=== PATIENT | female | born 1935 | race Caucasian/White ===

== ENCOUNTER → 2016-07-31 | Outpatient (REF) | payer MEDICARE ==
[~2016-07-31] MED LIST: AMLO10TA2 PO; AMLO25TA PO; ARIC10TA PO; BACT800T5 PO; CALCTAB22 PO; CALTCHW4 PO; CALTTAB10 PO; CENTCHW3 PO; CENTTAB PO; COLA100C2 OR; COMP1TAB PO; DECADRON PO; DEXA4TA PO; DONETAB6 PO; DRIS50002 PO; DYAZ37.5 PO; Drisdol PO; FAMC250T3 PO; FURO40TA2 PO; HYDR-3713 PO; LASI40TA PO; LEVO25TABR PO; LEVO75TA4 PO; LISI5TAB PO; LOPR1TAB6 PO; MELA5CHW PO; MILKSUS OR; MILKSUS PO; MIRA3350 PO; MULTIVIT PO; NAME5TAB13 PO; NORCOTAB PO; NORV5TAB OR; OMEP20CA3 PO; PRAV40TA PO; PROC5TA PO; SENO8.6T2 PO; SIMV40TA2 PO; TYLE325T5 PO; ULTR50TA PO; VELC3.5I IM; compazine PO
[2016-07-31 18:40] LABS: TOTAL PROTEIN 6.9 GM/DL (6.4-8.2)
[2016-08-01 13:59] LABS: ALBUMIN % 50.7 % (55.8-66.1)
[2016-08-04 00:06] LABS: FREE KAPPA LIGHT CHAINS SERUM 420.9 mg/L (3.3-19.4); FREE LAMBDA LIGHT CHAINS SERUM 14.9 mg/L (5.7-26.3); KAPPA/LAMBDA RATIO SERUM 28.25 (0.26-1.65)
== END ==
LOC: M LAB REF 17:59
PROVIDERS: ATTEND Internal Medicine Medical Oncology
DX: C90.00 Multiple myeloma not having achieved remission (principal)

== ENCOUNTER → 2016-08-01 | Outpatient (REF) | payer MEDICARE ==
[2016-08-01 17:40] LABS: FOLATE 12.7 NG/ML (>5.4)
[2016-08-01 17:52] LABS: ALBUMIN 3.4 GM/DL (3.2-5.2); ALBUMIN/GLOBULIN RATIO 0.92 (1.00-1.93); BILIRUBIN,TOTAL 0.4 MG/DL (0.2-1.0); CALCIUM LEVEL 8.3 MG/DL (8.8-10.2); CREATININE FOR GFR 1.26 MG/DL (0.55-1.02); GLOMERULAR FILTRATION RATE 43.2 (>32); POTASSIUM SERUM 4.6 MEQ/L (3.5-5.1); TOTAL PROTEIN 7.1 GM/DL (6.4-8.2)
[2016-08-01 19:07] LABS: MEAN CORPUSCULAR HEMOGLOBIN 30.5 pg (27.0-33.0); MEAN CORPUSCULAR VOLUME 95.3 fl (80.0-96.0); RED CELL DISTRIBUTION WIDTH 16.6 % (11.5-14.5); RETIC HEMOGLOBIN CONTENT CHr 33.7 PG (24-36); RETICULOCYTE % ADVIA2120 2.1 % (0.5-1.5); WHITE BLOOD COUNT 7.6 K/mm3 (4.0-10.0)
== END ==
LOC: M SFHCCLAY 11:08
PROVIDERS: ATTEND Nurse Practitioner Family
DX: K21.9 Gastro-esophageal reflux disease without esophagitis (principal); I10 Essential (primary) hypertension; E78.5 Hyperlipidemia, unspecified; E03.9 Hypothyroidism, unspecified; R41.3 Other amnesia; N39.0 Urinary tract infection, site not specified; Z79.899 Other long term (current) drug therapy; I48.91 Unspecified atrial fibrillation

== ENCOUNTER 2016-08-12 17:04 | Inpatient (IN) | payer MEDICARE ==
[~2016-08-12] VITALS: Ht 152.4 cm; Wt 38.2 kg
[~2016-08-12 17:04] MED LIST changes: -ARIC10TA PO; +ARIC1TAB2 PO; -CALTCHW4 PO; -CENTTAB PO; -FURO40TA2 PO; -HYDR-3713 PO; -MELA5CHW PO; -PROC5TA PO; -SENO8.6T2 PO; +SENO8.6T5 PO; -ULTR50TA PO; +ULTR50TA8 PO; -VELC3.5I IM
[2016-08-12] MEDS ORDERED: VELC3.5I IM (17:25)
[2016-08-12] MEDS ORDERED: DEXA4TA PO (17:25)
[2016-08-12] MEDS ORDERED: CENTTAB PO (17:25)
[2016-08-12] MEDS ORDERED: FURO40TA2 PO (17:25)
[2016-08-12] MEDS ORDERED: CALTCHW4 PO (17:25)
[2016-08-12] MEDS ORDERED: HYDR-3713 PO (17:25)
[2016-08-12] MEDS ORDERED: MELA5TAB20 PO (17:25)
[2016-08-12] MEDS ORDERED: PROC5TA PO (17:25)
[2016-08-12 18:25] LABS: ADD MANUAL DIFFER YES; MEAN CORPUSCULAR HEMOGLOBIN 30.6 pg (27.0-33.0); MEAN CORPUSCULAR HGB CONC 31.8 g/dl (32.0-36.5); MEAN CORPUSCULAR VOLUME 96.2 fl (80.0-96.0); PLATELET COUNT, AUTOMATED 381 k/mm3 (150-450); RED CELL DISTRIBUTION WIDTH 16.8 % (11.5-14.5); WHITE BLOOD COUNT 2.7 K/mm3 (4.0-10.0)
[2016-08-12 18:30] LABS: INR 1.07
[2016-08-12 18:51] LABS: ALBUMIN 3.1 GM/DL (3.2-5.2); ALBUMIN/GLOBULIN RATIO 0.86 (1.00-1.93); ALKALINE PHOSPHATASE 120 U/L (45-117); ALT/SGPT 16 U/L (12-78); AMYLASE 95 U/L (25-115); ANION GAP 7 MEQ/L (8-16); AST/SGOT 14 U/L (15-37); BILIRUBIN,DIRECT < 0.1 MG/DL (0.0-0.2); BILIRUBIN,TOTAL 0.4 MG/DL (0.2-1.0); BLOOD UREA NITROGEN 19 MG/DL (7-18); CALCIUM LEVEL 8.4 MG/DL (8.8-10.2); CARBON DIOXIDE LEVEL 31 MEQ/L (21-32); CHLORIDE LEVEL 102 MEQ/L (98-107); CREATININE FOR GFR 1.23 MG/DL (0.55-1.02); GLOMERULAR FILTRATION RATE 44.4 (>32); GLUCOSE, FASTING 99 MG/DL (83-110); POTASSIUM SERUM 3.6 MEQ/L (3.5-5.1); SODIUM LEVEL 140 MEQ/L (136-145); TOTAL PROTEIN 6.7 GM/DL (6.4-8.2)
[2016-08-12 18:53] LABS: BASOPHILS 4 % (0-4); EOSINOPHILS 2 % (0-5)
[2016-08-12 18:55] LABS: ANISOCYTOSIS 1+; HYPOCHROMASIA 1+
[2016-08-12] MEDS ORDERED: ISOVUE-370 76% 100ML VIAL (Q9967) As Ordered ONE (19:02)
--- NOTE | 2016-08-12 19:31 | REP ---
Clinical: Right lower quadrant pain. Technique: Axial contrast enhanced images from the lung bases to the pubic symphysis using oral and 100 ml Isovue 370 intravenous contrast material with coronal and sagittal re-formations. Findings: A [id number] pericardial effusion is appreciated. Lung bases are clear. Liver, spleen, gallbladder, and bilateral adrenal glands are normal. The pancreas demonstrates few scattered small cysts up to 9 mm which are nonspecific. Kidneys demonstrate cortical atrophic changes and few scattered small cysts without perinephric stranding or hydroureteronephrosis. The enteric system is without obstruction or acute inflammatory process. Diverticulosis noted without acute diverticulitis. Pelvis demonstrates partially collapsed bladder and age-appropriate uterus/adnexa with degenerating, partially calcified myomatous changes. Abdominal aorta and branch vessels demonstrate atherosclerotic changes without aneurysm or dissection. Musculoskeletal structures demonstrate age-related degenerative changes as well as evidence for old injuries to the pelvis and hips. No ascites. No free air. No adenopathy. Impression: 1. Moderate to large pericardial effusion. Lung bases are clear. 2. Subcentimeter pancreatic cysts are nonspecific and likely benign. 3. Atrophic changes to the bilateral kidneys with small sub centimeter cysts. 4. Diverticulosis without acute diverticulitis. 5. Small involuting partially calcified uterine fibroids. 6. Atherosclerotic changes to the vasculature as well as degenerative and post traumatic changes to the musculoskeletal structures. 7. No obvious acute abdominopelvic pathology otherwise appreciated. Signed by Ryan Matos MD 08/12/2016 07:22 P
[2016-08-13] VITALS (7 sets, daily range): BP systolic 138–180; BP diastolic 72–110; PULSE 114
[2016-08-13] MEDS ORDERED: ACETAMINOPHEN TAB 650MG DOSE (2X325MG) PO PRN
[2016-08-13] MEDS ORDERED: SLF 3 ML SYR IV PRN (04:30)
--- NOTE | 2016-08-13 04:57 | HPEPDOC ---
General Date of Admission Aug 12, 2016 at 18:03 Primary Care Physician: Yina Mcgrath Attending Physician: Yina Mcgrath Chief Complaint The patient is a 81-year-old female admitted with a reason for visit of Abdominal Pain,Pericardial Effusion. Source: RN notes reviewed, [facility] records, [facility] Caregiver/Aid Exam Limitations: Clinical conditions, Dementia, Mild cognitive slowing Timing/Duration: Unsure Severity: Moderate Associated Symptoms: Unobtainable History of Present Illness 81-year-old demented female is brought in by a caregiver for the complaint of abdominal pain. As per caregiver. There is no complaint of diarrhea, constipation. Patient progressively getting weak. No fever or chills. No history of kidney stone. No hematuria or dysuria. Patient's is unable to participate in history and physical exam Home Medications Scheduled (Caltrate 600+D 600-400 mg-Unit) 1 Chw Chw, 1 CHW PO DAILY, (Reported) Amlodipine Besylate (Norvasc) 2.5 Mg Tab, 5 MG PO DAILY, (Reported) Bortezomib (Velcade) 3.5 Mg Inj, 3.5 MG IM ASDIRECTED, (Reported) Dexamethasone (Dexamethasone) 4 Mg Tab, 5 MG PO DAILY, (Reported) Donepezil Hydrochloride (Aricept) 10 Mg Tab, 10 MG PO QHS, (Reported) Furosemide (Furosemide) 40 Mg Tab, 40 MG PO DAILY, (Reported) Levothyroxine Sodium (Synthroid) 75 Mcg Tab, 75 MCG PO DAILY, (Reported) Memantine (Namenda) 5 Mg Tab, 5 MG PO DAILY, (Reported) Multivitamins (Centrum Silver) 1 Tab Tab, 1 TAB PO DAILY, (Reported) Omeprazole (Omeprazole) 20 Mg Cap, 40 MG PO DAILY, (Reported) Pravastatin Sodium (Pravachol) 40 Mg Tab, 40 MG PO DAILY, (Reported) Scheduled PRN (Melatonin) 5 Mg Chw, 10 MG PO PRN PRN for INSOMNIA, (Reported) Acetaminophen (Tylenol) 325 Mg Tab, 650 MG PO Q4HP PRN for MILD PAIN OR FEVER, ( Reported) Acetaminophen/Hydrocodone (Hydrocodone/Acetaminophen 5-325 mg) 1 Tab Tab, 1 TAB PO Q6H PRN for PAIN, (Reported) Prochlorperazine (Prochlorperazine Maleate) 5 Mg Tab, 10 MG PO QIDP PRN for NAUSEA, (Reported) Allergies Coded Allergies: Aspirin (Verified Allergy, Unknown, 05/24/12) Lactose Intolerance (GI) (Verified Allergy, Unknown, 08/12/16) Past Medical History Medical History Dementia, hypertensive pancytopenia kidney injury Surgical History Unable to obtain Family History Significant Family History: Unable to assess Social History * Smoker: Denies Alcohol: Denies Drugs: denies Recent Travel/Sick Contacts: Denies: Recent travel, Recent sick contacts Psychosocial History: Dementia Review of Symptoms Other systems Unable to assess due to severe dementia Physical Examination General Exam: Positive: Alert, Mild Distress Eye Exam: Positive: PERRLA, Conjunctiva & lids normal, EOMI, Negative: Sclera icteric ENT Exam: Positive: Atraumatic, Mucous membr. moist/pink Neck Exam: Positive: Supple, Negative: JVD, thyromegaly Chest Exam: Positive: Rhonchi, Diminished Heart Exam: Positive: Rate Normal, Regular Rhythm, Normal S1, Normal S2, Negative: Murmurs, Rubs Telemetry: Positive: No significant arrhythmia Abdomen Exam: Positive: Normal bowel sounds, Soft, Tenderness, Negative: Hepatospenomegaly Extremity Exam: Positive: Normal pulses, Negative: Clubbing, Cyanosis, Edema Skin Exam: Positive: Nl turgor and temperature, Negative: Breakdown, Lesion Neuro Exam: Positive: Cranial Nerves 3-12 NL, Reflexes 2+ Psych Exam: Positive: Mood NL, Other (demented, not aware of her medical illness) Vital Signs Vital Signs Date Time Temp Pulse Resp B/P (MAP) Pulse Ox O2 Delivery O2 Flow Rate FiO2 08/13/16 03:49 98.9 20 08/13/16 03:40 112 08/13/16 03:25 93 08/12/16 17:04 Room Air Laboratory Data Labs 24H Laboratory Tests 2 08/12/16 18:06: Neutrophils 21L, Lymphocytes (Manual) 43, Monocytes (Manual) 30H, Eosinophils ( Manual) 2, Basophils (Manual) 4, Platelet Estimate NORMAL, Hypochromasia 1+, Anisocytosis 1+, Prothrombin Time 14.0, Prothromb Time International Ratio 1.07 , Activated Partial Thromboplast Time 28.1, Anion Gap 7L, Glomerular Filtration Rate 44.4, Lactic Acid Level 1.6, Calcium Level 8.4L, Aspartate Amino Transf ( AST/SGOT) 14L, Alanine Aminotransferase (ALT/SGPT) 16, Alkaline Phosphatase 120H , Total Bilirubin 0.4, Direct Bilirubin < 0.1, Total Creatine Kinase 44, Creatine Kinase MB 1.5, Creatine Kinase MB Relative Index 3.40, Troponin I < 0.02, Total Protein 6.7, Albumin 3.1L, Albumin/Globulin Ratio 0.86L, Amylase Level 95, Lipase 320 08/12/16 18:22: Urine Appearance HAZY, Urine Color YELLOW, Urine pH 6.0, Urine Specific [place] 1.014, Urine Protein 3+H, Urine Glucose (UA) NEGATIVE, Urine Ketones TRACEH, Urine Urobilinogen 0.2, Urine Bilirubin NEGATIVE, Urine Leukocyte Esterase 2+H, Urine Blood NEGATIVE, Urine Nitrite NEGATIVE, Urine WBC (Auto) 81H, Urine RBC ( Auto) 3, Urine Hyaline Casts (Auto) 0, Urine Bacteria (Auto) 2+H, Urine Squamous Epithelial Cells 1, Urine Mucus (Auto) SMALL, Urine Sperm (Auto) CBC/BMP Laboratory Tests 08/12/16 18:06 Red Blood Count 3.52 L, Mean Corpuscular Volume 96.2 H, Mean Corpuscular Hemoglobin 30.6, Mean Corpuscular Hemoglobin Concent 31.8 L, Red Cell Distribution Width 16.8 H Assessment/Plan 81-year-old demented female was brought in by casing man for pain in the abdomen and a CT of the abdomen showed moderate pericardial effusion Problems (1) Hypertension Status: Acute Problem Text: Continue with Norvasc (2) Multiple myeloma Status: Acute Problem Text: Pancytopenia. The WBC 2.7, hemoglobin 10.8 and platelets 38 hold any anticoagulation (3) Hypothyroid Status: Acute Problem Text: Continue with Synthroid (4) Pericardial effusion Status: Acute Problem Text: CT of the abdomen showed moderate pericardial effusion. Get echocardiogram and cardiology consult by day team hospitalist is started IV Lasix (5) Abdominal pain, right lateral Status: Acute Problem Text: Lipase is normal. LFT normal CT of the abdomen showed = Moderate to large pericardial effusion. Lung bases are clear. Subcentimeter pancreatic cysts are nonspecific and likely benign. Atrophic changes to the bilateral kidneys with small sub centimeter cysts. Diverticulosis without acute diverticulitis. Continue with pain control and IV normal saline (6) UTI (urinary tract infection) Problem Text: As started IV ceftriaxone. Follow. Urine culture (7) HEATHER (acute kidney injury) Problem Text: Creatinine 1.23, likely due to diuretics. Continue to monitor Plan / VTE VTE Prophylaxis Ordered?: Yes Plan Activity: Continue Current, Encourage Ambulation Diagnostics: TTE Anticipated Discharge: [facility] DENNIS GALEANO MD Aug 13, 2016 04:57
[2016-08-13] MEDS: LEVOTHYROXINE 75MCG TABLET (0.075MG) PO SCH (06:06)
[2016-08-13] MEDS: SLF 3 ML SYR IV SCH ×3 (06:06→20:09)
[2016-08-13] MEDS: cefTRIAXone SOD 1 GM in D5W MINI-BAG PLUS 50 ML IV SCH (06:06)
[2016-08-13 06:13] LABS: MEAN CORPUSCULAR HEMOGLOBIN 30.3 pg (27.0-33.0); MEAN CORPUSCULAR HGB CONC 32.1 g/dl (32.0-36.5); MEAN CORPUSCULAR VOLUME 94.5 fl (80.0-96.0); RED CELL DISTRIBUTION WIDTH 17.1 % (11.5-14.5); WHITE BLOOD COUNT 1.8 K/mm3 (4.0-10.0)
[2016-08-13 06:22] LABS: ALBUMIN/GLOBULIN RATIO 0.83 (1.00-1.93); BILIRUBIN,TOTAL 0.3 MG/DL (0.2-1.0); CALCIUM LEVEL 8.4 MG/DL (8.8-10.2); CREATININE FOR GFR 0.97 MG/DL (0.55-1.02); GLOMERULAR FILTRATION RATE 58.4 (>32); POTASSIUM SERUM 3.3 MEQ/L (3.5-5.1); TOTAL PROTEIN 6.6 GM/DL (6.4-8.2)
--- NOTE | 2016-08-13 08:43 | IPNPDOC ---
Subjective Date Seen The patient was seen on 08/13/16. Subjective Chief Complaint/HPI The patient is a 81-year-old female admitted with a reason for visit of Abdominal Pain,Pericardial Effusion. Events since last encounter Pt this morning without new concerns. She state that her abd feels full, but is not painful. General: Denies: Fatigue Constitutional: Denies: Chills, Fever ENT: Denies: Head Aches Pulmonary: Denies: Dyspnea, Cough Cardiovascular: Reports: Palpitations (comes and goes, ongoing for sometime.), Denies: Chest Pain Gastrointestinal: Denies: Nausea, Vomiting, Abdominal Pain (c/o fullness), Diarrhea, Constipation Neurological: Denies: Weakness Psych: Reports: Mood Normal Objective Physical Examination General Exam: Positive: Alert, Cooperative, No Acute Distress ENT Exam: Positive: Atraumatic, Mucous membr. moist/pink Neck Exam: Positive: Supple Chest Exam: Positive: Diminished, Negative: Rales, Rhonchi, Wheezing Heart Exam: Positive: Rate Normal, Regular Rhythm, Normal S1, Normal S2, Negative: Murmurs, Rubs Telemetry: Positive: No significant arrhythmia Abdomen Exam: Positive: Normal bowel sounds, Soft, Tenderness, Negative: Hepatospenomegaly Extremity Exam: Positive: Normal pulses, Negative: Clubbing, Cyanosis, Edema Skin Exam: Positive: Nl turgor and temperature, Negative: Breakdown, Lesion Neuro Exam: Positive: Normal Speech Psych Exam: Positive: Mood NL, Other (demented, not aware of her medical illness) Assessment /Plan Problems (1) Multiple myeloma Status: Chronic Problem Text: Pancytopenia. 08/13 WBC 1.8, hgb 101.1, plt 344K 07/2016 RUBEN IgG kappa c K/L ratio 421/28, check SPEP and bone survey follows c [facility]-prior c [facility] Oncology-was on bortezomib up to 05/2016 per caregiver (she is bring ing records) uses oxycodone 5 q6H prn "MM pain"-uses ~1x daily (2) Pericardial effusion Status: Acute Problem Text: 08/13 CT abd suggests moderate-large pericardial effusion. Echo ordered, Cardio consult placed. Started on Lasix 40 mg IV Q12h on admission. (3) Abdominal pain, right lateral Status: Acute Problem Text: pain mainly epigastrum-? gastritis/PUD (given dexa use)-improves c food 08/13 + PPI to BID/Carafate 08/12 CT abd without acute abdominal findings (4) Hypertension Status: Chronic Problem Text: Continue with Norvasc (5) Hypothyroid Status: Chronic Problem Text: Continue with Synthroid (6) UTI (urinary tract infection) Problem Text: ceftriaxone D2 2 abnormal UA, no culture obtained-attempt to obtain from UA, otherwise recheck (7) Chronic renal insufficiency, stage III (moderate) Status: Chronic Problem Specific Plan: Monitor Clinically Problem Text: baseline scr 1.5 (8) Paroxysmal atrial fibrillation Status: Chronic Response to Treatment: Stable Problem Text: remains rate controlled no anticoag 2 anemia Plan/VTE VTE Prophylaxis Ordered?: No VTE Exclusion Pharmacological: Bleeding Risk Plan Activity: Continue Current, Encourage Ambulation Diagnostics: TTE Anticipated Discharge: Retirement VS, I&O, 24H, Fishbone Vital Signs/I&O Vital Signs Date Time Temp Pulse Resp B/P (MAP) Pulse Ox O2 Delivery O2 Flow Rate FiO2 08/13/16 04:00 99.0 97 20 144/86 (105) 97 Room Air Laboratory Data 24H LABS Laboratory Tests 2 08/12/16 18:06: Neutrophils 21L, Lymphocytes (Manual) 43, Monocytes (Manual) 30H, Eosinophils ( Manual) 2, Basophils (Manual) 4, Platelet Estimate NORMAL, Hypochromasia 1+, Anisocytosis 1+, Prothrombin Time 14.0, Prothromb Time International Ratio 1.07 , Activated Partial Thromboplast Time 28.1, Anion Gap 7L, Glomerular Filtration Rate 44.4, Lactic Acid Level 1.6, Calcium Level 8.4L, Aspartate Amino Transf ( AST/SGOT) 14L, Alanine Aminotransferase (ALT/SGPT) 16, Alkaline Phosphatase 120H , Total Bilirubin 0.4, Direct Bilirubin < 0.1, Total Creatine Kinase 44, Creatine Kinase MB 1.5, Creatine Kinase MB Relative Index 3.40, Troponin I < 0.02, Total Protein 6.7, Albumin 3.1L, Albumin/Globulin Ratio 0.86L, Amylase Level 95, Lipase 320 08/12/16 18:22: Urine Appearance HAZY, Urine Color YELLOW, Urine pH 6.0, Urine Specific [place] 1.014, Urine Protein 3+H, Urine Glucose (UA) NEGATIVE, Urine Ketones TRACEH, Urine Urobilinogen 0.2, Urine Bilirubin NEGATIVE, Urine Leukocyte Esterase 2+H, Urine Blood NEGATIVE, Urine Nitrite NEGATIVE, Urine WBC (Auto) 81H, Urine RBC ( Auto) 3, Urine Hyaline Casts (Auto) 0, Urine Bacteria (Auto) 2+H, Urine Squamous Epithelial Cells 1, Urine Mucus (Auto) SMALL, Urine Sperm (Auto) 08/13/16 05:34: Anion Gap 9, Glomerular Filtration Rate 58.4, Calcium Level 8.4L, Aspartate Amino Transf (AST/SGOT) 17, Alanine Aminotransferase (ALT/SGPT) 16, Alkaline Phosphatase 110, Total Bilirubin 0.3, Total Protein 6.6, Albumin 3.0L, Albumin/ Globulin Ratio 0.83L, Blood Urea Nitrogen 14, Creatinine 0.97, Sodium Level 140 , Potassium Level 3.3L, Chloride Level 102, Carbon Dioxide Level 29 CBC/BMP Laboratory Tests 08/12/16 18:06 Red Blood Count 3.52 L, Mean Corpuscular Volume 96.2 H, Mean Corpuscular Hemoglobin 30.6, Mean Corpuscular Hemoglobin Concent 31.8 L, Red Cell Distribution Width 16.8 H 08/13/16 05:34 Red Blood Count 3.31 L, Mean Corpuscular Volume 94.5, Mean Corpuscular Hemoglobin 30.3, Mean Corpuscular Hemoglobin Concent 32.1, Red Cell Distribution Width 17.1 H, Calcium Level 8.4 L, Aspartate Amino Transf (AST/SGOT ) 17, Alanine Aminotransferase (ALT/SGPT) 16, Alkaline Phosphatase 110, Total Bilirubin 0.3, Total Protein 6.6, Albumin 3.0 L CAMILA ALMANZAR PA-C Aug 13, 2016 08:43 Mika Blackman M.D. Aug 13, 2016 14:37
[2016-08-13] MEDS ORDERED: OMEPRAZOLE 20 MG CAP PO SCH (09:00)
[2016-08-13] MEDS ORDERED: FUROSEMIDE 40 MG TAB PO SCH (09:00)
[2016-08-13] MEDS ORDERED: ENOXAPARIN 40 MG/0.4 ML SYRINGE (J1650) SC SCH (09:00)
[2016-08-13] MEDS: MULTIVITAMINS/MINERALS THERAP 1 TAB PO SCH (09:35)
[2016-08-13] MEDS: MEMANTINE 5MG TABLET (NAMENDA) PO SCH (09:35)
[2016-08-13] MEDS: amLODIPine 5 MG TAB PO SCH (09:35)
[2016-08-13] MEDS: FUROSEMIDE 40 MG/4 ML VIAL (J1940) IV SCH ×2 (09:36→17:26)
[2016-08-13] MEDS ORDERED: POTASSIUM CHLORIDE 10 MEQ SR TABLET PO ONE (13:00)
[2016-08-13] MEDS: ACETAMINOPHEN TAB 650MG DOSE (2X325MG) PO PRN ×2 (14:04→23:23)
--- NOTE | 2016-08-13 16:31 | REP ---
Adult bone survey: 16 views: History: Myeloma. Comparison study: 08/12/2014. This prior study showed no focal lytic lesion. Technique: AP and lateral views of the skull, C-spine, T-spine, lumbar spine are obtained. AP views of the pelvis and each femur and each humerus are also obtained. Findings: There is diffuse osteopenia. Multiple wedge-shaped compression deformities are seen, this has progressed since the prior study of July 2014 when there was some wedging at T10. There is progressive wedging at T10 and there is new wedging at T11 , T9, T8 and T7 as well as at L1-L2 and L3. No focal bony destructive lesion is appreciated. Pedicles and posterior elements appear to be intact. There are some degenerative changes in the cervical thoracic and lumbar spine. Cervical cranial fusion procedure has been for performed posteriorly as before. No bony calvarial defect is seen. There are intramedullary rods and hip fracture pinning bilaterally in the femurs. There is old post-traumatic deformity of the left pelvis. These changes are new when compared with the prior study. There is old post-traumatic deformity in the humeral head on the right. This is unchanged. Impression: No focal lytic lesions seen. Interval bilateral hip pinning and old appearing post traumatic deformity of the left pelvis. 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 Signed by Virgil Perrin MD 08/13/2016 05:54 P
[2016-08-13] MEDS: SUCRALFATE SUSP 1GM/10ML UD PO SCH ×2 (17:26→20:08)
[2016-08-13] MEDS: oxyCODONE 5MG TAB PO PRN (18:31)
[2016-08-13 18:45] LABS: TOTAL PROTEIN 7.5 GM/DL (6.4-8.2)
[2016-08-13] MEDS: PRAVASTATIN 20 MG TAB PO SCH (20:07)
[2016-08-13] MEDS: OMEPRAZOLE 20 MG CAP PO SCH (20:08)
[2016-08-13] MEDS: DONEPEZIL 5 MG TAB PO SCH (20:08)
[2016-08-14] VITALS (7 sets, daily range): BP systolic 124–161; BP diastolic 71–91; PULSE 95–96
[2016-08-14] MEDS: SLF 3 ML SYR IV SCH ×3 (04:41→22:01)
[2016-08-14] MEDS: LEVOTHYROXINE 75MCG TABLET (0.075MG) PO SCH (04:41)
[2016-08-14] MEDS: cefTRIAXone SOD 1 GM in D5W MINI-BAG PLUS 50 ML IV SCH (04:41)
[2016-08-14] MEDS: oxyCODONE 5MG TAB PO PRN ×2 (04:42→15:32)
[2016-08-14] MEDS: PROCHLORPERAZINE 5 MG TAB (S0183) PO PRN (04:57)
[2016-08-14 05:33] LABS: MEAN CORPUSCULAR HEMOGLOBIN 30.2 pg (27.0-33.0); MEAN CORPUSCULAR VOLUME 94.5 fl (80.0-96.0); RED CELL DISTRIBUTION WIDTH 17.1 % (11.5-14.5); WHITE BLOOD COUNT 2.1 K/mm3 (4.0-10.0)
[2016-08-14 05:51] LABS: ALBUMIN 3.1 GM/DL (3.2-5.2); ALBUMIN/GLOBULIN RATIO 0.79 (1.00-1.93); BILIRUBIN,TOTAL 0.3 MG/DL (0.2-1.0); CALCIUM LEVEL 8.7 MG/DL (8.8-10.2); CREATININE FOR GFR 1.1 MG/DL (0.55-1.02); GLOMERULAR FILTRATION RATE 50.5 (>32); POTASSIUM SERUM 3.4 MEQ/L (3.5-5.1)
--- NOTE | 2016-08-14 07:18 | ECGEPIP ---
Stationary ECG Study [facility] - ED Test Date: 2016-08-12 Pat Name: HALEY MOELLER Department: Room: [place] [address] Gender: F Skin Grader: KARLA : 1935 Requested By: Alvin Wells PA-C Order Number: [id number] Reading MD: Lillie Kim Measurements Intervals [place] Rate: 92 P: ND: 0 QRS: 2 QRSD: 77 T: 50 QT: 363 QTc: 450 Interpretive Statements ATRIAL FIBRILLATION ABNORMAL RHYTHM ECG NSTTW ABNORMALITY PRWP 11/06/14 NSR Electronically Signed On 08-14-2016 7:17:56 EDT by Lillie Kim
[2016-08-14] MEDS: OMEPRAZOLE 20 MG CAP PO SCH ×2 (08:27→20:19)
[2016-08-14] MEDS: MULTIVITAMINS/MINERALS THERAP 1 TAB PO SCH (08:27)
[2016-08-14] MEDS: SUCRALFATE SUSP 1GM/10ML UD PO SCH ×4 (08:27→20:17)
[2016-08-14] MEDS: amLODIPine 5 MG TAB PO SCH (08:28)
[2016-08-14] MEDS: FUROSEMIDE 40 MG/4 ML VIAL (J1940) IV SCH (08:28)
[2016-08-14] MEDS: MEMANTINE 5MG TABLET (NAMENDA) PO SCH (08:28)
--- NOTE | 2016-08-14 09:28 | IPNPDOC ---
Subjective Date Seen The patient was seen on 08/14/16. Subjective Chief Complaint/HPI The patient is a 81-year-old female admitted with a reason for visit of Abdominal Pain,Pericardial Effusion. Events since last encounter Pt denies CP, Abd pain, SOB. Constitutional: Denies: Chills, Fever Pulmonary: Denies: Dyspnea Cardiovascular: Denies: Chest Pain Gastrointestinal: Denies: Nausea, Vomiting, Abdominal Pain Objective Physical Examination General Exam: Positive: Alert, Cooperative, No Acute Distress ENT Exam: Positive: Atraumatic, Mucous membr. moist/pink Neck Exam: Positive: Supple Chest Exam: Positive: Diminished, Negative: Rales, Rhonchi, Wheezing Heart Exam: Positive: Rate Normal, Regular Rhythm, Normal S1, Normal S2, Negative: Murmurs, Rubs Telemetry: Positive: No significant arrhythmia Abdomen Exam: Positive: Normal bowel sounds, Soft, Tenderness, Negative: Hepatospenomegaly Extremity Exam: Positive: Normal pulses, Negative: Clubbing, Cyanosis, Edema Skin Exam: Positive: Nl turgor and temperature, Negative: Breakdown, Lesion Neuro Exam: Positive: Normal Speech Psych Exam: Positive: Mood NL, Other (demented, not aware of her medical illness) Assessment /Plan Problems (1) Multiple myeloma Status: Chronic Problem Text: Pancytopenia. 08/14 - WBC 2.1, hgb 10.5, plt 381 Bone Survey: "There is diffuse osteopenia. Multiple wedge-shaped compression deformities are seen, this has progressed since the prior study of July 2014 when there was some wedging at T10. There is progressive wedging at T10 and there is new wedging at T11 , T9, T8 and T7 as well as at L1-L2 and L3. No focal bony destructive lesion is appreciated. Pedicles and posterior elements appear to be intact. There are some degenerative changes in the cervical thoracic and lumbar spine. Cervical cranial fusion procedure has been for performed posteriorly as before. No bony calvarial defect is seen. There are intramedullary rods and hip fracture pinning bilaterally in the femurs. There is old post-traumatic deformity of the left pelvis. These changes are new when compared with the prior study. There is old post-traumatic deformity in the humeral head on the right. This is unchanged. Impression: No focal lytic lesions seen. Interval bilateral hip pinning and old appearing post traumatic deformity of the left pelvis. 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 He is awaiting the Echo. 08/13 CT abd suggests moderate-large pericardial effusion. Echo ordered, Cardio consult placed. Started on Lasix 40 mg IV Q12h on admission. (3) Abdominal pain, right lateral Status: Acute Problem Text: pain mainly epigastrum-? gastritis/PUD (given dexa use)-improves c food 08/13 + PPI to BID/Carafate 08/12 CT abd without acute abdominal findings (4) Hypertension Status: Chronic Problem Text: Continue with Norvasc (5) Hypothyroid Status: Chronic Problem Text: Continue with Synthroid (6) UTI (urinary tract infection) Problem Text: ceftriaxone D2 2 abnormal UA, no culture obtained-attempt to obtain from UA, otherwise recheck (7) Chronic renal insufficiency, stage III (moderate) Status: Chronic Problem Specific Plan: Monitor Clinically Problem Text: baseline scr 1.5 (8) Paroxysmal atrial fibrillation Status: Chronic Response to Treatment: Stable Problem Text: remains rate controlled no anticoag 2 anemia Plan/VTE VTE Prophylaxis Ordered?: No VTE Exclusion Pharmacological: Bleeding Risk Plan Activity: Continue Current, Encourage Ambulation Diagnostics: TTE Anticipated Discharge: Group Home Family Medicine Attending Note: I saw and examined Ms. Muñoz this afternoon; I discussed her care with RAFA Boyd and I agree with his note above. Ms. Muñoz denies abdominal pain to me today and her abdomen is soft and nontender to palpation. Bone survey shows no focal osteolytic lesions. We are awaiting echo to be done and read prior to discharge due to pericardial effusion seen on CT. (KES) VS, I&O, 24H, Fishbone Vital Signs/I&O Vital Signs Date Time Temp Pulse Resp B/P (MAP) Pulse Ox O2 Delivery O2 Flow Rate FiO2 08/14/16 08:34 Room Air 08/14/16 08:28 101 124/71 08/14/16 07:45 97.8 20 99 I&O- Last 24 Hours up to 6 AM 08/14/16 06:00 Intake Total 1450 ml Output Total 875 ml Balance 575 ml Laboratory Data 24H LABS Laboratory Tests 2 08/13/16 15:58: B-Type Natriuretic Peptide 991H, Total Protein (PEP) 7.5 08/14/16 05:04: Anion Gap 8, Glomerular Filtration Rate 50.5, Blood Urea Nitrogen 12, Creatinine 1.10H, Sodium Level 137, Potassium Level 3.4L, Chloride Level 101, Carbon Dioxide Level 28, Calcium Level 8.7L, Aspartate Amino Transf (AST/SGOT) 18, Alanine Aminotransferase (ALT/SGPT) 15, Alkaline Phosphatase 112, Total Bilirubin 0.3, Total Protein 7.0, Albumin 3.1L, Albumin/Globulin Ratio 0.79L CBC/BMP Laboratory Tests 08/14/16 05:04 Red Blood Count 3.46 L, Mean Corpuscular Volume 94.5, Mean Corpuscular Hemoglobin 30.2, Mean Corpuscular Hemoglobin Concent 32.0, Red Cell Distribution Width 17.1 H, Calcium Level 8.7 L, Aspartate Amino Transf (AST/SGOT ) 18, Alanine Aminotransferase (ALT/SGPT) 15, Alkaline Phosphatase 112, Total Bilirubin 0.3, Total Protein 7.0, Albumin 3.1 L Microbiology Microbiology 08/13/16 Urine Culture, Received Pending Jorge L Cuellar Aug 14, 2016 09:28 CLAUDETTE PICHARDO MD Aug 14, 2016 16:06
[2016-08-14] MEDS ORDERED: POTASSIUM CHLORIDE 10 MEQ SR TABLET PO ONE (09:30)
[2016-08-14] MEDS: ACETAMINOPHEN TAB 650MG DOSE (2X325MG) PO PRN ×2 (11:20→22:22)
[2016-08-14 13:17] LABS: CONTROL LINE HPYORI INT CTR LINE PRESENT
[2016-08-14 14:05] LABS: ALBUMIN 3.93 GM/DL (3.29-5.55); ALBUMIN % 52.4 % (55.8-66.1); GAMMA GLOBULIN % 14.5 % (11.1-18.8)
[2016-08-14] MEDS: CALCIUM CARBONATE 500 MG CHEW U/D PO PRN (15:25)
[2016-08-14] MEDS: ENOXAPARIN 40 MG/0.4 ML SYRINGE (J1650) SC SCH (15:27)
[2016-08-14] MEDS: PRAVASTATIN 20 MG TAB PO SCH (20:16)
[2016-08-14] MEDS: DONEPEZIL 5 MG TAB PO SCH (20:17)
[2016-08-15 04:45] VITALS: BP 147/84
[2016-08-15] MEDS: CALCIUM CARBONATE 500 MG CHEW U/D PO PRN (05:13)
[2016-08-15] MEDS: cefTRIAXone SOD 1 GM in D5W MINI-BAG PLUS 50 ML IV SCH (05:14)
[2016-08-15] MEDS: SLF 3 ML SYR IV SCH ×3 (05:15→22:00)
[2016-08-15] MEDS: LEVOTHYROXINE 75MCG TABLET (0.075MG) PO SCH (05:15)
[2016-08-15 08:00] VITALS: BP 170/88
[2016-08-15] MEDS: SUCRALFATE SUSP 1GM/10ML UD PO SCH ×4 (08:31→20:24)
[2016-08-15] MEDS: OMEPRAZOLE 20 MG CAP PO SCH ×2 (08:31→20:24)
[2016-08-15] MEDS: ENOXAPARIN 40 MG/0.4 ML SYRINGE (J1650) SC SCH (08:31)
[2016-08-15] MEDS: FUROSEMIDE 40 MG TAB PO SCH (08:32)
[2016-08-15] MEDS: ACETAMINOPHEN TAB 650MG DOSE (2X325MG) PO PRN ×2 (08:32→16:39)
[2016-08-15] MEDS: amLODIPine 5 MG TAB PO SCH (08:34)
[2016-08-15] MEDS: MULTIVITAMINS/MINERALS THERAP 1 TAB PO SCH (08:35)
[2016-08-15] MEDS: PROCHLORPERAZINE 5 MG TAB (S0183) PO PRN (08:35)
[2016-08-15] MEDS: MEMANTINE 5MG TABLET (NAMENDA) PO SCH (08:35)
--- NOTE | 2016-08-15 09:04 | IPNPDOC ---
Subjective Date Seen The patient was seen on 08/15/16. Subjective Chief Complaint/HPI The patient is a 81-year-old female admitted with a reason for visit of Abdominal Pain,Pericardial Effusion. Events since last encounter Pt this morning is c/o upset stomach, denies nausea. She states this is the same pain that she has had since admission. Nursing without new concerns, although they are hopeful that she can have something more than clear liquids today. General: Reports: Fatigue Constitutional: Denies: Chills, Fever ENT: Denies: Head Aches Pulmonary: Denies: Dyspnea, Cough Cardiovascular: Denies: Chest Pain, Palpitations Gastrointestinal: Reports: Abdominal Pain, Denies: Nausea, Vomiting, Diarrhea Neurological: Reports: Weakness Psych: Reports: Mood Normal Objective Physical Examination General Exam: Positive: Alert, Cooperative, No Acute Distress ENT Exam: Positive: Mucous membr. moist/pink Neck Exam: Positive: Supple Chest Exam: Positive: Diminished, Negative: Rales, Rhonchi, Wheezing Heart Exam: Positive: Rate Normal, Regular Rhythm, Normal S1, Normal S2, Negative: Murmurs, Rubs Telemetry: Positive: No significant arrhythmia Abdomen Exam: Positive: Normal bowel sounds, Soft, Negative: Tenderness, Hepatospenomegaly Extremity Exam: Positive: Normal pulses, Negative: Clubbing, Cyanosis, Edema Skin Exam: Positive: Nl turgor and temperature, Negative: Breakdown, Lesion Neuro Exam: Positive: Normal Speech Psych Exam: Positive: Mood NL, Other (demented, not aware of her medical illness) Assessment /Plan Problems (1) Multiple myeloma Status: Chronic Problem Text: 08/15 - case d/w Dr. Gallagher, patient's [facility] who states correct dose of dexa should be 20 qW for MM maintenance (but could be weaned down if needed)- states her disease does NOT involve the bone and therefore, NO need for high dose narcotic for MM pain-therefore, decreased to [place] 5 q8prn 08/14 - WBC 2.1, hgb 10.5, plt 381 Bone Survey: "There is diffuse osteopenia. Multiple wedge-shaped compression deformities are seen, this has progressed since the prior study of July 2014 when there was some wedging at T10. There is progressive wedging at T10 and there is new wedging at T11 , T9, T8 and T7 as well as at L1-L2 and L3. No focal bony destructive lesion is appreciated. Pedicles and posterior elements appear to be intact. There are some degenerative changes in the cervical thoracic and lumbar spine. Cervical cranial fusion procedure has been for performed posteriorly as before. No bony calvarial defect is seen. There are intramedullary rods and hip fracture pinning bilaterally in the femurs. There is old post-traumatic deformity of the left pelvis. These changes are new when compared with the prior study. There is old post-traumatic deformity in the humeral head on the right. This is unchanged. Impression: No focal lytic lesions seen. Interval bilateral hip pinning and old appearing post traumatic deformity of the left pelvis. Interval development of multiple thoracolumbar osteoporotic wedge compression deformities as described above." 08/13 WBC 1.8, hgb 101.1, plt 344K 07/2016 RUBEN IgG kappa c K/L ratio 421/28, check SPEP and bone survey follows [facility]st Gallagher-prior [facility]-was on bortezomib up to 05/2016 per caregiver (she is bring ing records) uses oxycodone 5 q6H prn "MM pain" (2) Pericardial effusion Status: Acute Problem Text: 08/15 K 3.4; therefore, +20 QD 08/13 CT abd suggests moderate-large pericardial effusion. BNP 991 (no previous in [place]) Echo ordered, Cardio consult placed. Started on Lasix 40 mg IV Q12h on admission. but TTE 08/13/16: Normal global left ventricular systolic function with mild concentric left ventricular hypertrophy. 2. Aortic valve sclerosis without stenosis or aortic regurgitation. 3. Moderate mitral annulus calcification with mitral annulus calcification. Subjectively, the left atrium appeared to be mildly enlarged. 4. Moderate tricuspid regurgitation with probably mild pulmonary hypertension. 5. Small to moderate pericardial effusion noted around the heart, no evidence of cardiac tamponade. 6. There are findings across the fossa ovalis of the atrial septum that may represent a patent foramen ovale/PFO therefore, Lasix decreased to HD 40 QD (3) Abdominal pain, right lateral Status: Acute Problem Text: pain mainly epigastrum-? gastritis/PUD (given dexa use)-improves c food 08/13 + PPI to BID/Carafate 08/12 CT abd without acute abdominal findings (4) Hypertension Status: Chronic Problem Text: Continue with Norvasc (5) Hypothyroid Status: Chronic Problem Text: Continue with Synthroid (6) UTI (urinary tract infection) Problem Text: 08/15 - Completed Rocephin x 3d, Culture obtained after start of treatment neg, will d/c Abx. 08/14 ceftriaxone D2 2 abnormal UA, 08/13/16 UCX NG (7) Chronic renal insufficiency, stage III (moderate) Status: Chronic Problem Specific Plan: Monitor Clinically Problem Text: baseline scr 1.5 (8) Paroxysmal atrial fibrillation Status: Chronic Response to Treatment: Stable Problem Text: remains rate controlled no anticoag 2 anemia Plan/VTE VTE Prophylaxis Ordered?: No VTE Exclusion Pharmacological: Bleeding Risk Plan Activity: Continue Current, Encourage Ambulation Diagnostics: TTE Anticipated Discharge: Assisted Disposition Transfer to floor when ECHO report available. HSE per PT VS, I&O, 24H, Fishbone Vital Signs/I&O Vital Signs Date Time Temp Pulse Resp B/P (MAP) Pulse Ox O2 Delivery O2 Flow Rate FiO2 08/15/16 08:34 116 170/80 08/15/16 08:28 Room Air 08/15/16 04:45 98.8 20 99 I&O- Last 24 Hours up to 6 AM 08/15/16 06:00 Intake Total 1320 ml Output Total 1350 ml Balance -30 ml Laboratory Data Microbiology Microbiology 08/13/16 Urine Culture - Final, Complete CAMILA ALMANZAR PA-C Aug 15, 2016 09:04 Mika Blackman M.D. Aug 15, 2016 16:51
[2016-08-15 12:15] VITALS: BP 148/76
--- NOTE | 2016-08-15 13:51 | ECHO ---
DATE OF PROCEDURE: 08/13/2016 DATE OF : 1935 AGE: 81 PRIMARY PROVIDER: Dr. Hudson Menezes. REFERRING PROVIDER: Dr. Henrik Smith. PRIMARY DECK MATE: Dr. Moss. PATIENT LOCATION: Room 3225. REASON FOR ECHOCARDIOGRAM: Heart failure. 2D MEASUREMENTS: IVS: 1.2 cm LV: 4.1 cm LVPW: 1.2 cm LA: 3.9 cm Aorta: 2.9 cm IVC: 1.6 cm DOPPLER MEASUREMENTS: Peak velocity across the aortic valve: 1.1 m/s Peak velocity across the LVOT: 0.69 m/s Mitral E: 0.90 Maximum tricuspid valve velocity: 2.7 m/s 2D COMMENTS: 1. Normal left ventricular size and systolic function. Left ventricular wall thickness appeared to be increased. The estimated global left ventricular systolic ejection fraction is 60%. 2. Subjectively, the left atrium and right atrium appear to be mildly enlarged. Normal right ventricle. 3. There was a small color flow jet noted at the level of the fossa ovalis that may represent a patent foramen ovale/PFO. 4. Normal aortic root. 5. Small to moderate pericardial effusion noted around the heart, no evidence of cardiac tamponade. 6. Mildly calcified aortic valve with normal leaflet excursion. Mildly calcified mitral annulus with normal anterior mitral valve leaflet motion. Normal tricuspid valve. The pulmonic valve and proximal pulmonary artery branches were not well visualized. 7. The inferior vena cava was normal in size. Central venous pressure is most likely normal. DOPPLER: It detects moderate mitral regurgitation and moderate tricuspid regurgitation. The calculated pulmonary artery systolic pressure varies between 30 to 40 mmHg. Assessment of the left ventricular diastolic function was limited, patient appeared to be in atrial fibrillation during the test but with a controlled ventricular rhythm. IMPRESSION: 1. Normal global left ventricular systolic function with mild concentric left ventricular hypertrophy. 2. Aortic valve sclerosis without stenosis or aortic regurgitation. 3. Moderate mitral regurgitation with mitral annulus calcification. Subjectively, the left atrium appeared to be mildly enlarged. 4. Moderate tricuspid regurgitation with probably mild pulmonary hypertension. 5. Small to moderate pericardial effusion noted around the heart, no evidence of cardiac tamponade. 6. There are findings across the fossa ovalis of the atrial septum that may represent a patent foramen ovale/PFO. MTDD
[2016-08-15 15:30] VITALS: BP 155/76
[2016-08-15] MEDS ORDERED: NORCO, ANEXSIA 5/325MG TABLET (HYDROcodone/ACETAMINOPHEN) PO PRN (17:00)
[2016-08-15 20:00] VITALS: BP 150/88
[2016-08-15] MEDS: PRAVASTATIN 20 MG TAB PO SCH (20:24)
[2016-08-15] MEDS: DONEPEZIL 5 MG TAB PO SCH (20:24)
[2016-08-15] MEDS: oxyCODONE 5MG TAB PO PRN (20:25)
[2016-08-15 23:59] VITALS: BP 115/56
[2016-08-16 04:00] VITALS: BP 139/94
[2016-08-16] MEDS: LEVOTHYROXINE 75MCG TABLET (0.075MG) PO SCH (05:38)
[2016-08-16] MEDS: SLF 3 ML SYR IV SCH (05:38)
[2016-08-16 05:46] LABS: MEAN CORPUSCULAR HEMOGLOBIN 30.5 pg (27.0-33.0); MEAN CORPUSCULAR HGB CONC 32.5 g/dl (32.0-36.5); MEAN CORPUSCULAR VOLUME 93.6 fl (80.0-96.0); RED CELL DISTRIBUTION WIDTH 16.7 % (11.5-14.5); WHITE BLOOD COUNT 2.4 K/mm3 (4.0-10.0)
[2016-08-16 07:23] LABS: ALBUMIN/GLOBULIN RATIO 0.81 (1.00-1.93); BILIRUBIN,TOTAL 0.3 MG/DL (0.2-1.0); CALCIUM LEVEL 8.7 MG/DL (8.8-10.2); CREATININE FOR GFR 1.2 MG/DL (0.55-1.02); GLOMERULAR FILTRATION RATE 45.7 (>32); POTASSIUM SERUM 3.6 MEQ/L (3.5-5.1); TOTAL PROTEIN 6.7 GM/DL (6.4-8.2)
[2016-08-16 08:00] VITALS: BP 169/73
[2016-08-16] MEDS: SUCRALFATE SUSP 1GM/10ML UD PO SCH ×2 (08:14→12:28)
[2016-08-16] MEDS: ENOXAPARIN 40 MG/0.4 ML SYRINGE (J1650) SC SCH (08:14)
[2016-08-16] MEDS: OMEPRAZOLE 20 MG CAP PO SCH (08:15)
[2016-08-16 08:16] VITALS: BP 169/73
[2016-08-16] MEDS: FUROSEMIDE 40 MG TAB PO SCH (08:16)
[2016-08-16] MEDS: MEMANTINE 5MG TABLET (NAMENDA) PO SCH (08:16)
[2016-08-16] MEDS: amLODIPine 5 MG TAB PO SCH (08:16)
[2016-08-16] MEDS: MULTIVITAMINS/MINERALS THERAP 1 TAB PO SCH (08:16)
[2016-08-16] MEDS ORDERED: POTASSIUM CHLORIDE 10 MEQ SR TABLET PO SCH (09:00)
[2016-08-16] MEDS ORDERED: SUCR10SS PO (11:20)
[2016-08-16] MEDS ORDERED: DEXA2TA PO (11:20)
[2016-08-16] MEDS ORDERED: OMEP20CA3 PO (11:20)
--- NOTE | 2016-08-16 11:55 | DSES ---
DATE OF ADMISSION: 08/13/2016 DATE OF DISCHARGE: 08/16/2016 PRIMARY CARE PROVIDER (PCP): SHAKA Figueroa ATTENDING TODAY: Mika Blackman MD HISTORY: This is an 81-year-old female patient who follows with Yina Mcgrath at [facility] in [place]. She has a history of dementia. Is cared for in her home by her family. She had been complaining of abdominal pain without any diarrhea or constipation. She had been progressively becoming more weak. Denied any fevers or chills. Patient provided limited history secondary to her advancing dementia. During her hospitalization, she has remained medically stable. She was admitted to the hospital for right lateral abdominal pain as well as pericardial effusion identified on CT scan. She was also started on IV antibiotics for a urinary tract infection. She underwent CT of the abdomen and pelvis, which was without any acute findings to contribute to her abdominal pain. Amylase and lipase were benign. Her abdominal pain has consistently and steadily improved. She is eating a regular diet and tolerating this well. In regards to her pericardial effusion, she underwent transthoracic echocardiogram on the 08/13/2016, which suggested a small to moderate pericardial effusion, no evidence of cardiac tamponade, normal left ventricular systolic function, mild concentric left ventricular hypertrophy (LVH), aortic valve sclerosis without stenosis or regurgitation, moderate mitral annulus calcification, moderate tricuspid regurgitation, probably mild pulmonary hypertension. Abdominal pain was likely felt to be secondary to gastritis. Her proton pump inhibitor (PPI) was increased to twice a day. Carafate was also added. She is on dexamethasone once weekly secondary to her history of multiple myeloma, which is followed by oncology in [place] as well as here in [place] with Dr. Kerr. Dr. Blackman spoke with Dr. Kerr yesterday, who confirmed her dose of dexamethasone 20 mg every week. Her complete blood count (CBC), although abnormal, remained stable during her hospitalization. This is associated with her chronic multiple myeloma diagnosis. She has been seen by physical therapy, who feel as though she is safe to return to her prior living situation. She will not be discharged on antibiotics as she completed antibiotics for an E. coli urinary tract infection (UTI) during her hospitalization. The culture reveals no growth, although this was obtained after the antibiotics had been started. DISCHARGE DIAGNOSES: Include: 1. Right upper quadrant abdominal pain. 2. Multiple myeloma. 3. Pericardial effusion. 4. Gastritis. 5. Hypertension. 6. Hypothyroidism. 7. Urinary tract infection. 8. Chronic kidney disease stage III. 9. Underweight with body mass index (BMI) of 16.4. DISCHARGE MEDICATIONS: Include: - dexamethasone 20 mg every Friday - omeprazole 40 mg twice daily - sucralfate 1 gram before meals and before bed - Tylenol 650 mg every 4 hours as needed for mild pain or fever - acetaminophen/hydrocodone 5/325 one tablet every 6 hours as needed for pain - amlodipine 5 mg daily - donepezil 10 mg nightly - furosemide 40 mg daily - Levoxyl 75 mcg daily - melatonin 10 mg as needed before bed for insomnia - Namenda 5 mg daily - multivitamin one tablet daily - Pravachol 40 mg daily - prochlorperazine 10 mg four times daily as needed for nausea DISCHARGE PLAN: Will be to followup with Dr. Harris/Yina Mcgrath in 1 week. Activity should be as tolerated. Followup with Dr. Kerr per his office. Diet is soft mechanical. Edited: chu 08/18/2016 1043
== END 2016-08-16 13:50 | disposition home or self-care (01) | DRG 315 ==
LOC: M ED 18:02 → M ED INP 18:03 → OBSVTOIN 08-13 → M PCU 08-13 04:00
PROVIDERS: ADMIT Internal Medicine; ATTEND Family Medicine
DX: I31.3 Pericardial effusion (noninflammatory) (principal); N39.0 Urinary tract infection, site not specified; Z68.1 Body mass index [BMI] 19.9 or less, adult; C90.00 Multiple myeloma not having achieved remission; N17.9 Acute kidney failure, unspecified; R63.6 Underweight; N18.3 Chronic kidney disease, stage 3 (moderate); F03.90 Unspecified dementia, unspecified severity, without behavioral disturbance, psychotic disturbance, mood disturbance, and anxiety; I36.0 Nonrheumatic tricuspid (valve) stenosis; K29.70 Gastritis, unspecified, without bleeding; I12.9 Hypertensive chronic kidney disease with stage 1 through stage 4 chronic kidney disease, or unspecified chronic kidney disease; E03.9 Hypothyroidism, unspecified; Z79.899 Other long term (current) drug therapy; E73.9 Lactose intolerance, unspecified; G47.00 Insomnia, unspecified; Z88.6 Allergy status to analgesic agent; I48.0 Paroxysmal atrial fibrillation

== ENCOUNTER → 2016-09-19 | Outpatient (REF) | payer MEDICARE ==
[~2016-09-19] MED LIST changes: +ACYC200C8 PO; +AMLO5TAB2 PO; +ARIC1TAB PO; +BISAC5TA PO; +CALTCHW4 PO; +CARV25TA PO; +CENTTAB PO; +DEXA2TA PO; +DOCU10ELUD PO; +FURO40TA2 PO; +HYDR-3713 PO; +MELA5TAB20 PO; +METO-346 PO; +OMEP40CA2 PO; +PRAV40TA2 PO; +PROC5TA PO; +SENN18TA PO; +SERT25TA PO; +SUCR10SS PO; +SUCR1SUS PO; +VELC3.5I IM; +VITACHTA PO
[2016-09-22 00:06] LABS: FREE KAPPA LIGHT CHAINS SERUM 306.7 mg/L (3.3-19.4); FREE LAMBDA LIGHT CHAINS SERUM 12.4 mg/L (5.7-26.3); KAPPA/LAMBDA RATIO SERUM 24.73 (0.26-1.65)
== END ==
LOC: M LAB REF 16:18
PROVIDERS: ATTEND Internal Medicine Medical Oncology
DX: C90.00 Multiple myeloma not having achieved remission (principal)

== ENCOUNTER → 2016-10-24 | Outpatient (REF) | payer MEDICARE ==
[2016-10-24 14:48] LABS: IMMUNOGLOBULIN M 27.6 MG/DL (40-230)
[2016-10-27 00:06] LABS: FREE LAMBDA LIGHT CHAINS SERUM 12.9 mg/L (5.7-26.3); KAPPA/LAMBDA RATIO SERUM 25.5 (0.26-1.65)
== END ==
LOC: M LAB REF 10:36
PROVIDERS: ATTEND Internal Medicine Medical Oncology
DX: C90.00 Multiple myeloma not having achieved remission (principal)

== ENCOUNTER 2016-10-25 15:33 | Inpatient (IN) | payer MEDICARE ==
[~2016-10-25] VITALS: Ht 152.4 cm; Wt 40.8 kg
[~2016-10-25 15:33] MED LIST changes: -ACYC200C8 PO; -AMLO5TAB2 PO; -ARIC1TAB PO; -BISAC5TA PO; -CARV25TA PO; -DOCU10ELUD PO; -METO-346 PO; -OMEP40CA2 PO; -PRAV40TA2 PO; -SENN18TA PO; -SERT25TA PO; -SUCR1SUS PO; -VITACHTA PO
[2016-10-25] MEDS ORDERED: SERT25TA PO (15:47)
[2016-10-25] MEDS ORDERED: CARV25TA PO (15:47)
[2016-10-25] MEDS ORDERED: ACYC200C8 PO (15:47)
--- NOTE | 2016-10-25 17:13 | REP ---
Clinical: Left lower quadrant pain. Comparison: 08/12/2016. Findings: A [id number] pericardial effusion is again identified and unchanged along with atherosclerotic changes to the thoracic aorta and coronary arteries. Liver, spleen, pancreas, gallbladder, bilateral adrenal glands and kidneys are relatively normal / stable for noncontrast evaluation. The enteric system is without obstruction or acute inflammatory process colonic and sigmoid diverticulosis noted without acute diverticulitis pelvis demonstrates normal bladder and age related changes to the uterus including degenerating calcified myomatous changes. No ascites. No free air. No obvious adenopathy. Atherosclerotic changes of the aorta noted without aneurysm. Surrounding musculoskeletal structures demonstrate age-related degenerative changes and chronic stable compression deformities most notable at T11. Impression: 1. Stable moderate to large pericardial effusion and atherosclerotic changes to the vasculature. 2. Diverticulosis without evidence for acute diverticulitis. 3. Skeletal structures demonstrate osteopenia and degenerative changes along with compression fracture deformities predominantly at T11 and T9. 4. No further acute abdominopelvic pathology appreciated. No free fluid. No free air. Signed by Ryan Matos MD 10/25/2016 05:05 P
--- NOTE | 2016-10-25 17:42 | REP ---
Clinical: Chest pain. Comparison: 11/29/2014. Findings: Cardiomegaly suggested along with diffuse chronic interstitial changes. No acute consolidation, effusion, or pneumothorax. Skeletal structures demonstrate age-related osteopenia and degenerative changes. Impression: Cardiomegaly. Chronic changes. No acute cardiopulmonary process. Signed by Ryan Matos MD 10/25/2016 05:33 P
[2016-10-25 18:03] LABS: BASO % 0.3 % (0.0-1.0); EOS # 0.1 K/mm3 (0.0-0.50); EOS % 1.3 % (0.0-3.0); LARGE UNSTAINED CELL # 0.1 K/mm3 (0.0-0.4); LARGE UNSTAINED CELL % 2.2 % (0.0-4.0); LYMPH # 0.6 K/mm3 (1.5-4.5); LYMPH % 9.7 % (24.0-44.0); MEAN CORPUSCULAR HEMOGLOBIN 31.2 pg (27.0-33.0); MEAN CORPUSCULAR VOLUME 94.3 fl (80.0-96.0); MONO # 0.5 K/mm3 (0.0-0.8); MONO % 7.8 % (0.0-5.0); NEUTROPHILS # 5.1 K/mm3 (1.8-7.7); NEUTROPHILS % 78.8 % (36.0-66.0); PLATELET COUNT, AUTOMATED 420 k/mm3 (150-450); RED CELL DISTRIBUTION WIDTH 14.8 % (11.5-14.5); WHITE BLOOD COUNT 6.5 K/mm3 (4.0-10.0)
[2016-10-25 18:20] LABS: ALBUMIN 3.4 GM/DL (3.2-5.2); ALBUMIN/GLOBULIN RATIO 0.89 (1.00-1.93); ALKALINE PHOSPHATASE 126 U/L (45-117); ALT/SGPT 35 U/L (12-78); ANION GAP 7 MEQ/L (8-16); AST/SGOT 25 U/L (15-37); BILIRUBIN,DIRECT < 0.1 MG/DL (0.0-0.2); BILIRUBIN,TOTAL 0.2 MG/DL (0.2-1.0); BLOOD UREA NITROGEN 37 MG/DL (7-18); CALCIUM LEVEL 9.1 MG/DL (8.8-10.2); CARBON DIOXIDE LEVEL 32 MEQ/L (21-32); CHLORIDE LEVEL 101 MEQ/L (98-107); CREATININE FOR GFR 1.24 MG/DL (0.55-1.02); GLUCOSE, FASTING 96 MG/DL (83-110); POTASSIUM SERUM 3.7 MEQ/L (3.5-5.1); SODIUM LEVEL 140 MEQ/L (136-145); TOTAL PROTEIN 7.2 GM/DL (6.4-8.2)
[2016-10-25] MEDS ORDERED: NS 500 ML IV ONE (18:30)
[2016-10-25] MEDS ORDERED: AMLO5TAB2 PO (19:39)
[2016-10-25] MEDS ORDERED: DEXA4TA PO (19:39)
[2016-10-25] MEDS ORDERED: ARIC1TAB PO (19:39)
[2016-10-25] MEDS ORDERED: VITACHTA PO (19:41)
[2016-10-25] MEDS ORDERED: OMEP40CA2 PO (19:43)
[2016-10-25] MEDS ORDERED: SUCR1SUS PO (19:43)
[2016-10-25] MEDS ORDERED: METO-346 PO (19:43)
[2016-10-25] MEDS ORDERED: PRAV40TA2 PO (19:43)
[2016-10-25] MEDS ORDERED: ONDANSETRON 4MG/2ML VIAL (J2405) IV PRN (20:00)
--- NOTE | 2016-10-25 20:13 | HPEPDOC ---
General Date of Admission 10/25/16 Primary Care Physician: Yina Mcgrath Attending Physician: Deepak Noriega MD Chief Complaint The patient is a 81-year-old female admitted with a reason for visit of Medical Complaint. History of Present Illness 81-year-old female with past medical history of hypothyroidism, hypertension, atrial fibrillation not on anticoagulation, dementia, multiple myeloma, and chronic kidney disease stage III was brought to the ER by her due to frequent falls and inability to take care of the patient. The patient's states that he has initiated the process of placement for the patient as an outpatient. He was potentially trying to get her into the [facility], however there were no beds available. At this time, the patient states that he has been unable to take care of his as she needs somebody to watch her 24 hours a day, otherwise she will crawl out of her bed and fall. He notes that her dementia has progressively worsened over the last several months. He denies noting any acute complaints of fevers, chills, chest pain, palpitations, shortness of breath, abdominal pain, or any nausea/vomiting/ diarrhea. Home Medications Scheduled (Caltrate 600+D 600-400 mg-Unit) 1 Chw Chw, 1 CHW PO DAILY, (Reported) Amlodipine Besylate (Amlodipine Besylate) 5 Mg Tab, 5 MG PO DAILY, (Reported) Carvedilol (Carvedilol) 25 Mg Tab, 25 MG PO BID, (Reported) Dexamethasone (Dexamethasone) 4 Mg Tab, 20 MG PO QWEEK, (Reported) TAKES ON SUNDAYS Donepezil Hydrochloride (Aricept) 5 Mg Tab, 5 MG PO QHS, (Reported) Furosemide (Furosemide) 40 Mg Tab, 40 MG PO DAILY, (Reported) Levothyroxine Sodium (Synthroid) 75 Mcg Tab, 75 MCG PO DAILY, (Reported) Memantine (Namenda) 5 Mg Tab, 5 MG PO DAILY, (Reported) Metoprolol Tartrate (Metoprolol Tartrate) 12.5 Mg Halftab, 12.5 MG PO BID, ( Reported) Multivitamins Chewable *[facility] STOCKED* (Animal Shapes with C & FA *[facility] STOCKED*) 1 Tab Chew, 1 TAB PO DAILY, (Reported) Omeprazole (Omeprazole) 40 Mg Cap, 40 MG PO DAILY, (Reported) Pravastatin Sod (Pravastatin Sodium) 40 Mg Tab, 40 MG PO QHS, (Reported) Sertraline Hcl (Sertraline HCl) 25 Mg Tab, 25 MG PO BID, (Reported) Sucralfate (Sucralfate) 1 Gm/10 Ml Elissa, 10 ML PO ACHS, (Reported) Scheduled PRN Acetaminophen/Hydrocodone (Hydrocodone/Acetaminophen 5-325 mg) 1 Tab Tab, 1 TAB PO Q6H PRN for PAIN, (Reported) Prochlorperazine (Prochlorperazine Maleate) 5 Mg Tab, 10 MG PO Q8H PRN for NAUSEA, (Reported) Allergies Coded Allergies: Aspirin (Verified Allergy, Unknown, 05/24/12) Lactose Intolerance (GI) (Verified Allergy, Unknown, 08/12/16) Past Medical History Medical History As noted in HPI. 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 2 SON(S) . FAMILY HISTORY IS POSITIVE FOR HEART DISEASE, AND HYPERTENSION. Obtained from PCP chart Social History * Smoker: Denies Alcohol: Denies Drugs: denies Currently being cared for by her at home. Review of Symptoms Other systems 10 point review of systems negative unless otherwise specified in HPI. Physical Examination General Exam: Positive: Cooperative, No Acute Distress ENT Exam: Positive: Atraumatic, Mucous membr. moist/pink Neck Exam: Negative: JVD Chest Exam: Positive: Clear to auscultation, Normal air movement Heart Exam: Positive: Rate Normal, Normal S1, Normal S2 Abdomen Exam: Positive: Soft, Negative: Tenderness Extremity Exam: Negative: Tenderness, Swelling Vital Signs Vital Signs Date Time Temp Pulse Resp B/P (MAP) Pulse Ox O2 Delivery O2 Flow Rate FiO2 10/25/16 19:31 98.1 97 18 163/107 (125) 98 10/25/16 15:34 Room Air Laboratory Data Labs 24H Laboratory Tests 2 10/25/16 17:45: White Blood Count 6.5, Red Blood Count 3.93L, Hemoglobin 12.3, Hematocrit 37.1, Mean Corpuscular Volume 94.3, Mean Corpuscular Hemoglobin 31.2, Mean Corpuscular Hemoglobin Concent 33.0, Red Cell Distribution Width 14.8H, Platelet Count 420, Neutrophils (%) (Auto) 78.8H, Lymphocytes (%) (Auto) 9.7L, Monocytes (%) (Auto) 7.8H, Eosinophils (%) (Auto) 1.3, Basophils (%) (Auto) 0.3 , Neutrophils # (Auto) 5.1, Lymphocytes # (Auto) 0.6L, Monocytes # (Auto) 0.5, Eosinophils # (Auto) 0.1, Basophils # (Auto) 0.0, Large Unclassified Cells % 2.2 , Large Unclassified Cells # 0.1, Urine Appearance CLEAR, Urine Color STRAW, Urine pH 6.0, Urine Specific [place] 1.006, Urine Protein 2+H, Urine Glucose (UA ) NEGATIVE, Urine Ketones NEGATIVE, Urine Urobilinogen 0.2, Urine Bilirubin NEGATIVE, Urine Leukocyte Esterase NEGATIVE, Urine Blood NEGATIVE, Urine Nitrite NEGATIVE, Urine WBC (Auto) 1, Urine RBC (Auto) 4H, Urine Hyaline Casts ( Auto) 0, Urine Bacteria (Auto) NEGATIVE, Urine Squamous Epithelial Cells 0, Urine Sperm (Auto) , Anion Gap 7L, Glomerular Filtration Rate 44.0, Calcium Level 9.1, Aspartate Amino Transf (AST/SGOT) 25, Alanine Aminotransferase (ALT/ SGPT) 35, Alkaline Phosphatase 126H, Total Bilirubin 0.2, Direct Bilirubin < 0.1 , Total Protein 7.2, Albumin 3.4, Albumin/Globulin Ratio 0.89L, Lipase 287 CBC/BMP Laboratory Tests 10/25/16 17:45 Red Blood Count 3.93 L, Mean Corpuscular Volume 94.3, Mean Corpuscular Hemoglobin 31.2, Mean Corpuscular Hemoglobin Concent 33.0, Red Cell Distribution Width 14.8 H, Neutrophils (%) (Auto) 78.8 H, Lymphocytes (%) (Auto ) 9.7 L, Monocytes (%) (Auto) 7.8 H, Eosinophils (%) (Auto) 1.3, Basophils (%) ( Auto) 0.3, Neutrophils # (Auto) 5.1, Lymphocytes # (Auto) 0.6 L, Monocytes # ( Auto) 0.5, Eosinophils # (Auto) 0.1, Basophils # (Auto) 0.0 Microbiology Microbiology 10/25/16 Urine Culture, Received Pending Plan / VTE VTE Prophylaxis Ordered?: Yes Plan Plan Progressive dementia, fall risk The patient will need to be placed in a long-term facility, as her is unable to take care of her at this time. PFS has been consulted for placement. History of atrial fibrillation Not on anticoagulation Rate controlled on Coreg Hypertension, stable Continue Norvasc, Coreg, Lasix Dyslipidemia Continue statin GERD Continue PPI, Carafate Hypothyroidism Continue levothyroxine Dementia Continue donepezil, Namenda Depression/anxiety Continue Zoloft Chronic kidney disease stage III And creatinine appears to be her baseline History of multiple myeloma DVT prophylaxis Heparin subcutaneous The patient will be admitted to the service of Dr. Noriega of [facility], who will begin to follow the patient on 10/26/16 at 7 AM. ADELA ELLISON MD Oct 25, 2016 20:13
[2016-10-25] MEDS: HEPARIN SOD (PORCINE) 5000 UNITS/ML VIAL SC SCH ×2 (21:00→23:20)
[2016-10-25] MEDS: SUCRALFATE SUSP 1GM/10ML UD PO SCH ×2 (21:00→23:20)
[2016-10-25] MEDS: PRAVASTATIN 20 MG TAB PO SCH ×2 (21:00→23:21)
[2016-10-25] MEDS: DONEPEZIL 5 MG TAB PO SCH ×2 (21:00→23:22)
[2016-10-25] MEDS: SERTRALINE HCL 25 MG TABLET PO SCH ×2 (21:00→23:22)
[2016-10-25] MEDS: CARVedilol 12.5 MG TAB PO SCH ×2 (21:00→23:21)
[2016-10-25 23:02] VITALS: BP 146/79
[2016-10-26] MEDS: LEVOTHYROXINE 75MCG TABLET (0.075MG) PO SCH (05:56)
[2016-10-26 06:00] VITALS: BP 166/89
[2016-10-26 06:36] LABS: MEAN CORPUSCULAR HEMOGLOBIN 31.4 pg (27.0-33.0); MEAN CORPUSCULAR HGB CONC 33.1 g/dl (32.0-36.5); MEAN CORPUSCULAR VOLUME 94.8 fl (80.0-96.0); RED CELL DISTRIBUTION WIDTH 14.9 % (11.5-14.5); WHITE BLOOD COUNT 5.6 K/mm3 (4.0-10.0)
[2016-10-26 06:57] LABS: CALCIUM LEVEL 8.1 MG/DL (8.8-10.2); CREATININE FOR GFR 1.26 MG/DL (0.55-1.02); GLOMERULAR FILTRATION RATE 43.2 (>32); MAGNESIUM LEVEL 1.7 MG/DL (1.8-2.4); POTASSIUM SERUM 3.2 MEQ/L (3.5-5.1)
[2016-10-26] MEDS: MULTIVITAMINS CHILDREN'S CHEWABLE TABLET PO SCH (08:36)
[2016-10-26] MEDS: SUCRALFATE SUSP 1GM/10ML UD PO SCH ×4 (08:41→20:57)
[2016-10-26] MEDS: OMEPRAZOLE 20 MG CAP PO SCH (08:43)
[2016-10-26] MEDS: CARVedilol 12.5 MG TAB PO SCH ×2 (08:45→20:59)
[2016-10-26] MEDS: FUROSEMIDE 40 MG TAB PO SCH (08:52)
[2016-10-26] MEDS: MEMANTINE 5MG TABLET (NAMENDA) PO SCH (08:54)
[2016-10-26] MEDS: PROCHLORPERAZINE 5 MG TAB (S0183) PO PRN (08:56)
[2016-10-26] MEDS: SERTRALINE HCL 25 MG TABLET PO SCH ×2 (08:57→20:57)
[2016-10-26] MEDS: amLODIPine 5 MG TAB PO SCH (08:59)
[2016-10-26] MEDS: HEPARIN SOD (PORCINE) 5000 UNITS/ML VIAL SC SCH ×2 (09:01→20:57)
[2016-10-26 14:00] VITALS: BP 142/82
[2016-10-26] MEDS: NORCO, ANEXSIA 5/325MG TABLET (HYDROcodone/ACETAMINOPHEN) PO PRN ×2 (14:21→22:09)
--- NOTE | 2016-10-26 16:06 | IPN ---
DATE: 10/26/2016 Philly was admitted essentially for placement. I reviewed her history and physical. There has been no change in her status overnight. PHYSICAL EXAMINATION: VITAL SIGNS: Stable. GENERAL: She is alert, conversant, talkative. Does know where she is. LUNGS: Clear. HEART: Regular rate and rhythm. ABDOMEN: Soft, nontender. NEUROLOGIC: Nonfocal. LABORATORY DATA: Potassium 3.2, creatinine stable at 1.2. PLAN: Replace potassium. Weight for patient and family services (PFS) to pursue placement. They should be back in on Friday.
[2016-10-26] MEDS: POTASSIUM CHLORIDE 10 MEQ SR TABLET PO SCH (17:02)
[2016-10-26] MEDS: PRAVASTATIN 20 MG TAB PO SCH (20:57)
[2016-10-26] MEDS: DONEPEZIL 5 MG TAB PO SCH (20:57)
[2016-10-26 22:00] VITALS: BP 142/88
[2016-10-27 06:00] VITALS: BP 143/74
[2016-10-27] MEDS: LEVOTHYROXINE 75MCG TABLET (0.075MG) PO SCH (06:23)
[2016-10-27] MEDS: AMPICILLIN 250 MG CAP PO SCH ×3 (06:23→17:22)
[2016-10-27] MEDS: PROCHLORPERAZINE 5 MG TAB (S0183) PO PRN ×2 (08:01→16:12)
[2016-10-27] MEDS: SUCRALFATE SUSP 1GM/10ML UD PO SCH ×4 (08:01→20:43)
[2016-10-27] MEDS: NORCO, ANEXSIA 5/325MG TABLET (HYDROcodone/ACETAMINOPHEN) PO PRN ×2 (09:07→20:44)
[2016-10-27] MEDS: POTASSIUM CHLORIDE 10 MEQ SR TABLET PO SCH (09:08)
[2016-10-27] MEDS: amLODIPine 5 MG TAB PO SCH (09:12)
[2016-10-27] MEDS: FUROSEMIDE 40 MG TAB PO SCH (09:12)
[2016-10-27] MEDS: SERTRALINE HCL 25 MG TABLET PO SCH ×2 (09:14→20:44)
[2016-10-27] MEDS: CARVedilol 12.5 MG TAB PO SCH ×2 (09:14→20:45)
[2016-10-27] MEDS: OMEPRAZOLE 20 MG CAP PO SCH (09:14)
[2016-10-27] MEDS: MULTIVITAMINS CHILDREN'S CHEWABLE TABLET PO SCH (09:16)
[2016-10-27] MEDS: MEMANTINE 5MG TABLET (NAMENDA) PO SCH (09:16)
[2016-10-27] MEDS: HEPARIN SOD (PORCINE) 5000 UNITS/ML VIAL SC SCH ×2 (09:20→20:43)
[2016-10-27 14:00] VITALS: BP 157/81
--- NOTE | 2016-10-27 14:07 | IPN ---
DATE: 10/27/2016 Philly vomited this morning after getting her antibiotics. She has grown out Enterococcus just 25,000 colonies from her urine. I think the urinary tract infection might have accounted for the toxic metabolic encephalopathy leading to her altered mental status. Potassium was a little low yesterday. We restarted this. I have labs ordered for tomorrow. PHYSICAL EXAMINATION: Blood pressure 164/102, another time it was 143/74, pulse of 84, respiratory rate 20, 99% oxygen saturation. General Appearance: She is resting comfortably, looks back to her baseline per . Pleasantly demented. Lungs: Clear. Heart: Regular rhythm. Abdomen: Soft, nontender. No costovertebral angle tenderness. No peripheral edema. IMPRESSION: 1. Toxic metabolic encephalopathy secondary to urinary tract infection. Continue ampicillin. Mental status back to baseline. 2. Enterococcal urinary tract infection. Only 25,000 colonies but I do think she is symptomatic from this. She is on oral ampicillin. 3. Hypertension. Blood pressures intermittently mildly elevated. This morning I think it was due to her pain. If her blood pressure remains elevated, we can adjust the dose of her medications. 4. Hyperlipidemia. Continue pravastatin 40 mg nightly. 5. Hypokalemia. Lab work has been ordered for tomorrow. Supplemental potassium has been added to her furosemide. 6. Dementia. Continue her Aricept 5 mg at bedtime for what it is worth. Also continue sertraline 25 mg twice a day. 7. Hypothyroidism. Thyroid-stimulating hormone (TSH) in a normal range on her current dose of levothyroxine 75 mcg daily. TSH was last checked in July. I will repeat this tomorrow.
[2016-10-27] MEDS ORDERED: ONDANSETRON 4 MG TAB (S0181) PO PRN (17:45)
--- NOTE | 2016-10-27 18:38 | REP ---
Clinical: Worsening abdominal pain. Comparison: 10/25/2016, 08/12/2016. Findings: Lung bases again demonstrate moderate to large pericardial effusion along with chronic interstitial changes and trace lingular atelectasis. Liver, spleen, pancreas, bilateral adrenal glands and kidneys are stable and relatively normal for noncontrast evaluation. Gallbladder suggests a small amount of layering sludge without evidence for acute cholecystitis. The enteric system is without obstruction or acute inflammatory process sigmoid diverticulosis noted without acute diverticulitis. Pelvis demonstrates normal bladder and age-appropriate uterus/adnexa with partially calcified degenerating fibroids noted. No pelvic fluid or ascites. No obvious adenopathy. No free air. Atherosclerotic changes to the vasculature noted without aneurysm. Musculoskeletal structures demonstrate degenerative changes without focal osseous abnormality and chronic compression deformities of lower thoracic and lumbar vertebral bodies essentially unchanged when compared to 08/12/2016. Impression: 1. No acute abdominopelvic pathology appreciated. 2. Stable pericardial effusion and trace left lingular atelectasis. 3. Small amount of layering sludge in the gallbladder without evidence for acute cholecystitis. 4. Scattered diverticula without acute diverticulitis or obvious acute enteric process. 5. Degenerating partially calcified uterine fibroids. 6. Chronic multilevel compression deformities involving lower thoracic and lumbar vertebral bodies stable compared to 08/12/2016. Signed by Ryan Matos MD 10/27/2016 06:29 P
[2016-10-27] MEDS: PRAVASTATIN 20 MG TAB PO SCH (20:44)
[2016-10-27] MEDS: DONEPEZIL 5 MG TAB PO SCH (20:45)
[2016-10-27] MEDS: ONDANSETRON 4 MG TAB (S0181) PO PRN (21:28)
[2016-10-27 22:00] VITALS: BP 140/95
[2016-10-28] MEDS: AMPICILLIN 250 MG CAP PO SCH ×5 (00:46→23:29)
[2016-10-28] MEDS: LEVOTHYROXINE 75MCG TABLET (0.075MG) PO SCH (05:54)
[2016-10-28 06:00] VITALS: BP 139/73
[2016-10-28 06:02] LABS: MEAN CORPUSCULAR HEMOGLOBIN 30.4 pg (27.0-33.0); MEAN CORPUSCULAR HGB CONC 32.2 g/dl (32.0-36.5); MEAN CORPUSCULAR VOLUME 94.4 fl (80.0-96.0); RED CELL DISTRIBUTION WIDTH 14.5 % (11.5-14.5); WHITE BLOOD COUNT 3.6 K/mm3 (4.0-10.0)
[2016-10-28 06:29] LABS: ALBUMIN/GLOBULIN RATIO 0.81 (1.00-1.93); BILIRUBIN,TOTAL 0.4 MG/DL (0.2-1.0); CALCIUM LEVEL 8.6 MG/DL (8.8-10.2); CREATININE FOR GFR 1.15 MG/DL (0.55-1.02); FREE T4 1.22 NG/DL (0.76-1.46); POTASSIUM SERUM 3.5 MEQ/L (3.5-5.1); TOTAL PROTEIN 6.7 GM/DL (6.4-8.2)
[2016-10-28] MEDS: OMEPRAZOLE 20 MG CAP PO SCH (08:44)
[2016-10-28] MEDS: SUCRALFATE SUSP 1GM/10ML UD PO SCH ×4 (08:44→21:19)
[2016-10-28] MEDS: POTASSIUM CHLORIDE 10 MEQ SR TABLET PO SCH (08:45)
[2016-10-28] MEDS: CARVedilol 12.5 MG TAB PO SCH ×2 (08:45→21:18)
[2016-10-28] MEDS: MEMANTINE 5MG TABLET (NAMENDA) PO SCH (08:46)
[2016-10-28] MEDS: SERTRALINE HCL 25 MG TABLET PO SCH ×2 (08:46→21:19)
[2016-10-28] MEDS: HEPARIN SOD (PORCINE) 5000 UNITS/ML VIAL SC SCH ×2 (08:46→21:19)
[2016-10-28] MEDS: FUROSEMIDE 40 MG TAB PO SCH (08:46)
[2016-10-28] MEDS: amLODIPine 5 MG TAB PO SCH (10:29)
[2016-10-28] MEDS: MULTIVITAMINS CHILDREN'S CHEWABLE TABLET PO SCH (10:29)
[2016-10-28 14:00] VITALS: BP 121/73
--- NOTE | 2016-10-28 16:14 | DSES ---
DATE OF ADMISSION: 10/25/2016 DATE OF DISCHARGE: ATTENDING PHYSICIAN: PRIMARY CARE PROVIDER: Yina Mcgrath, nurse practitioner at [facility] in [place]. HISTORY OF PRESENT ILLNESS: An 81-year-old female brought to the emergency room (ER) by her due to frequent falls and inability to take care of her. The patient's states he initiated the process of placement as an outpatient and is unable to care for his as she needs someone 24 hours a day. Otherwise, she is crawling out of bed and falling. The patient's noted dementia is progressively worse over the last several months contributing to her falls. PAST MEDICAL HISTORY: Significant for: 1. Hypothyroidism. 2. Hypertension. 3. Atrial fibrillation without anticoagulation. 4. Dementia. 5. Multiple myeloma. 6. Chronic kidney disease, stage III. Workup did prove positive for urinary tract infection which was sensitive to ampicillin. The patient was placed on oral ampicillin and has tolerated that well. The patient has remained confused and is in need of a sitter for her safety. Patient and family services is involved and working on placement in [facility] if possible as this is the 's preference. The patient did have some difficulties with hypokalemia in the presence of her diuretic. This did correct with replacement and she did have some hypomagnesemia with a value of 1.7. However, that has corrected as well. PHYSICAL EXAMINATION: DISCHARGE DIAGNOSES: 1. Urinary tract infection. 2. Progressive dementia. 3. History of atrial fibrillation, not on anticoagulation. 4. Hypertension. 5. Hypothyroidism. 6. Multiple myeloma. 7. Chronic kidney disease, stage III. DISCHARGE MEDICATIONS: Will be provided by discharging provider.
[2016-10-28] MEDS: PRAVASTATIN 20 MG TAB PO SCH (21:19)
[2016-10-28] MEDS: DONEPEZIL 5 MG TAB PO SCH (21:19)
[2016-10-28 22:00] VITALS: BP 146/96
[2016-10-28] MEDS: NORCO, ANEXSIA 5/325MG TABLET (HYDROcodone/ACETAMINOPHEN) PO PRN (23:30)
[2016-10-29] MEDS: AMPICILLIN 250 MG CAP PO SCH ×3 (05:29→17:34)
[2016-10-29] MEDS: LEVOTHYROXINE 75MCG TABLET (0.075MG) PO SCH (05:29)
[2016-10-29 06:00] VITALS: BP 146/96
[2016-10-29 06:36] LABS: CALCIUM LEVEL 8.7 MG/DL (8.8-10.2); CREATININE FOR GFR 1.24 MG/DL (0.55-1.02)
[2016-10-29] MEDS: SUCRALFATE SUSP 1GM/10ML UD PO SCH ×4 (07:30→20:19)
[2016-10-29] MEDS: SERTRALINE HCL 25 MG TABLET PO SCH ×2 (09:00→20:20)
[2016-10-29] MEDS: FUROSEMIDE 40 MG TAB PO SCH (09:00)
[2016-10-29] MEDS: POTASSIUM CHLORIDE 10 MEQ SR TABLET PO SCH (09:00)
[2016-10-29] MEDS: MULTIVITAMINS CHILDREN'S CHEWABLE TABLET PO SCH (09:00)
[2016-10-29] MEDS: HEPARIN SOD (PORCINE) 5000 UNITS/ML VIAL SC SCH ×2 (09:00→20:21)
[2016-10-29] MEDS ORDERED: DOCUSATE SODIUM 100 MG CAP PO SCH (09:00)
[2016-10-29] MEDS: DOCUSATE SOD LIQ 100MG/10ML UDC PO SCH ×2 (09:00→20:19)
[2016-10-29] MEDS: MEMANTINE 5MG TABLET (NAMENDA) PO SCH (09:00)
[2016-10-29] MEDS: CARVedilol 12.5 MG TAB PO SCH ×2 (09:00→20:20)
[2016-10-29] MEDS: OMEPRAZOLE 20 MG CAP PO SCH (09:00)
[2016-10-29] MEDS: amLODIPine 5 MG TAB PO SCH (09:00)
[2016-10-29 14:00] VITALS: BP_SYST 111; BP_SYST 130; BP_DIAS 70; BP_DIAS 80
[2016-10-29] MEDS: NORCO, ANEXSIA 5/325MG TABLET (HYDROcodone/ACETAMINOPHEN) PO PRN (20:20)
[2016-10-29] MEDS: PRAVASTATIN 20 MG TAB PO SCH (20:20)
[2016-10-29] MEDS: SENNA 8.6 MG TAB (SENOKOT) PO SCH (20:20)
[2016-10-29] MEDS: DONEPEZIL 5 MG TAB PO SCH (20:20)
[2016-10-29 22:00] VITALS: BP 111/65
[2016-10-30] MEDS: AMPICILLIN 250 MG CAP PO SCH ×5 (00:12→23:42)
[2016-10-30 06:00] VITALS: BP 139/82
[2016-10-30] MEDS: LEVOTHYROXINE 75MCG TABLET (0.075MG) PO SCH (06:02)
[2016-10-30] MEDS: DOCUSATE SOD LIQ 100MG/10ML UDC PO SCH ×2 (08:00→21:42)
[2016-10-30] MEDS: SUCRALFATE SUSP 1GM/10ML UD PO SCH ×4 (08:00→21:43)
[2016-10-30] MEDS: MULTIVITAMINS CHILDREN'S CHEWABLE TABLET PO SCH (08:00)
[2016-10-30] MEDS: POTASSIUM CHLORIDE 10 MEQ SR TABLET PO SCH (08:01)
[2016-10-30] MEDS: SERTRALINE HCL 25 MG TABLET PO SCH ×2 (08:01→21:43)
[2016-10-30] MEDS: OMEPRAZOLE 20 MG CAP PO SCH (08:03)
[2016-10-30] MEDS: FUROSEMIDE 40 MG TAB PO SCH (08:03)
[2016-10-30] MEDS: amLODIPine 5 MG TAB PO SCH (08:03)
[2016-10-30] MEDS: MEMANTINE 5MG TABLET (NAMENDA) PO SCH (08:03)
[2016-10-30] MEDS: CARVedilol 12.5 MG TAB PO SCH ×2 (08:03→21:45)
[2016-10-30] MEDS: HEPARIN SOD (PORCINE) 5000 UNITS/ML VIAL SC SCH ×2 (08:04→21:43)
[2016-10-30] MEDS: NORCO, ANEXSIA 5/325MG TABLET (HYDROcodone/ACETAMINOPHEN) PO PRN ×2 (08:06→17:07)
[2016-10-30 14:00] VITALS: BP 116/59
[2016-10-30] MEDS: DONEPEZIL 5 MG TAB PO SCH (21:43)
[2016-10-30] MEDS: SENNA 8.6 MG TAB (SENOKOT) PO SCH (21:43)
[2016-10-30] MEDS: PRAVASTATIN 20 MG TAB PO SCH (21:43)
[2016-10-30 22:00] VITALS: BP 121/55
[2016-10-31] MEDS: ACETAMINOPHEN TAB 650MG DOSE (2X325MG) PO PRN ×4 (05:41→22:49)
[2016-10-31] MEDS: LEVOTHYROXINE 75MCG TABLET (0.075MG) PO SCH (05:41)
[2016-10-31] MEDS: AMPICILLIN 250 MG CAP PO SCH ×4 (05:41→23:02)
[2016-10-31] MEDS: MIRALAX *UNIT DOSE* 17GM PACKET PO PRN (05:44)
[2016-10-31 06:00] VITALS: BP 106/73
[2016-10-31] MEDS: MULTIVITAMINS CHILDREN'S CHEWABLE TABLET PO SCH (10:09)
[2016-10-31] MEDS: POTASSIUM CHLORIDE 10 MEQ SR TABLET PO SCH (10:09)
[2016-10-31] MEDS: OMEPRAZOLE 20 MG CAP PO SCH (10:09)
[2016-10-31] MEDS: MEMANTINE 5MG TABLET (NAMENDA) PO SCH (10:10)
[2016-10-31] MEDS: DOCUSATE SOD LIQ 100MG/10ML UDC PO SCH ×2 (10:10→20:35)
[2016-10-31] MEDS: SERTRALINE HCL 25 MG TABLET PO SCH ×2 (10:10→20:35)
[2016-10-31] MEDS: SUCRALFATE SUSP 1GM/10ML UD PO SCH ×4 (10:11→20:35)
[2016-10-31] MEDS: HEPARIN SOD (PORCINE) 5000 UNITS/ML VIAL SC SCH ×2 (10:11→20:36)
[2016-10-31] MEDS: CARVedilol 12.5 MG TAB PO SCH ×2 (10:19→20:36)
[2016-10-31] MEDS: amLODIPine 5 MG TAB PO SCH (10:19)
[2016-10-31] MEDS: FUROSEMIDE 40 MG TAB PO SCH (10:20)
[2016-10-31 14:00] VITALS: BP 129/83
[2016-10-31] MEDS: PRAVASTATIN 20 MG TAB PO SCH (20:35)
[2016-10-31] MEDS: DONEPEZIL 5 MG TAB PO SCH (20:35)
[2016-10-31] MEDS: SENNA 8.6 MG TAB (SENOKOT) PO SCH (20:36)
[2016-10-31 22:00] VITALS: BP 120/67
[2016-11-01] MEDS: LEVOTHYROXINE 75MCG TABLET (0.075MG) PO SCH (05:30)
[2016-11-01] MEDS: AMPICILLIN 250 MG CAP PO SCH ×3 (05:30→18:05)
[2016-11-01 06:00] VITALS: BP 141/79
[2016-11-01] MEDS: HEPARIN SOD (PORCINE) 5000 UNITS/ML VIAL SC SCH ×2 (08:57→20:12)
[2016-11-01] MEDS: DOCUSATE SOD LIQ 100MG/10ML UDC PO SCH ×2 (08:57→20:10)
[2016-11-01] MEDS: SUCRALFATE SUSP 1GM/10ML UD PO SCH ×4 (08:57→20:10)
[2016-11-01] MEDS: CARVedilol 12.5 MG TAB PO SCH ×2 (08:57→20:12)
[2016-11-01] MEDS: OMEPRAZOLE 20 MG CAP PO SCH (08:58)
[2016-11-01] MEDS: MULTIVITAMINS CHILDREN'S CHEWABLE TABLET PO SCH (08:58)
[2016-11-01] MEDS: MEMANTINE 5MG TABLET (NAMENDA) PO SCH (08:58)
[2016-11-01] MEDS: SERTRALINE HCL 25 MG TABLET PO SCH ×2 (08:58→20:11)
[2016-11-01] MEDS: POTASSIUM CHLORIDE 10 MEQ SR TABLET PO SCH (08:58)
[2016-11-01] MEDS: FUROSEMIDE 40 MG TAB PO SCH (08:58)
[2016-11-01] MEDS: amLODIPine 5 MG TAB PO SCH (08:59)
[2016-11-01 14:00] VITALS: BP 146/70
[2016-11-01] MEDS: ACETAMINOPHEN TAB 650MG DOSE (2X325MG) PO PRN (20:10)
[2016-11-01] MEDS: PRAVASTATIN 20 MG TAB PO SCH (20:11)
[2016-11-01] MEDS: DONEPEZIL 5 MG TAB PO SCH (20:11)
[2016-11-01] MEDS: SENNA 8.6 MG TAB (SENOKOT) PO SCH (20:11)
[2016-11-01] MEDS: CLOTRIMAZOLE 10 MG TROCHE PO SCH (21:35)
[2016-11-01 22:00] VITALS: BP 138/80
[2016-11-02] MEDS: NORCO, ANEXSIA 5/325MG TABLET (HYDROcodone/ACETAMINOPHEN) PO PRN ×3 (00:48→16:42)
[2016-11-02] MEDS: AMPICILLIN 250 MG CAP PO SCH ×4 (00:48→18:19)
[2016-11-02 06:00] VITALS: BP 108/61
[2016-11-02] MEDS: LEVOTHYROXINE 75MCG TABLET (0.075MG) PO SCH (06:03)
[2016-11-02] MEDS: CLOTRIMAZOLE 10 MG TROCHE PO SCH ×4 (08:04→21:15)
[2016-11-02] MEDS: SUCRALFATE SUSP 1GM/10ML UD PO SCH ×4 (08:04→21:12)
[2016-11-02] MEDS: POTASSIUM CHLORIDE 10 MEQ SR TABLET PO SCH (08:04)
[2016-11-02] MEDS: amLODIPine 5 MG TAB PO SCH (08:05)
[2016-11-02] MEDS: CARVedilol 12.5 MG TAB PO SCH ×2 (08:05→21:14)
[2016-11-02] MEDS: MEMANTINE 5MG TABLET (NAMENDA) PO SCH (08:05)
[2016-11-02] MEDS: OMEPRAZOLE 20 MG CAP PO SCH (08:05)
[2016-11-02] MEDS: MULTIVITAMINS CHILDREN'S CHEWABLE TABLET PO SCH (08:06)
[2016-11-02] MEDS: SERTRALINE HCL 25 MG TABLET PO SCH ×2 (08:06→21:14)
[2016-11-02] MEDS: HEPARIN SOD (PORCINE) 5000 UNITS/ML VIAL SC SCH ×2 (08:06→21:13)
[2016-11-02] MEDS: FUROSEMIDE 40 MG TAB PO SCH (08:06)
[2016-11-02] MEDS: DOCUSATE SOD LIQ 100MG/10ML UDC PO SCH ×2 (08:15→21:00)
[2016-11-02 14:00] VITALS: BP 99/62
[2016-11-02] MEDS: SENNA 8.6 MG TAB (SENOKOT) PO SCH (21:00)
[2016-11-02] MEDS: DONEPEZIL 5 MG TAB PO SCH (21:13)
[2016-11-02] MEDS: PRAVASTATIN 20 MG TAB PO SCH (21:14)
[2016-11-02] MEDS: ACETAMINOPHEN TAB 650MG DOSE (2X325MG) PO PRN (21:16)
[2016-11-03] MEDS: AMPICILLIN 250 MG CAP PO SCH ×4 (00:05→16:54)
[2016-11-03 06:00] VITALS: BP 119/80
[2016-11-03] MEDS: LEVOTHYROXINE 75MCG TABLET (0.075MG) PO SCH (06:15)
[2016-11-03] MEDS: MULTIVITAMINS CHILDREN'S CHEWABLE TABLET PO SCH (09:25)
[2016-11-03] MEDS: DOCUSATE SOD LIQ 100MG/10ML UDC PO SCH ×2 (09:25→20:51)
[2016-11-03] MEDS: SUCRALFATE SUSP 1GM/10ML UD PO SCH ×4 (09:25→20:51)
[2016-11-03] MEDS: OMEPRAZOLE 20 MG CAP PO SCH (09:26)
[2016-11-03] MEDS: MEMANTINE 5MG TABLET (NAMENDA) PO SCH (09:26)
[2016-11-03] MEDS: CLOTRIMAZOLE 10 MG TROCHE PO SCH ×4 (09:26→20:51)
[2016-11-03] MEDS: POTASSIUM CHLORIDE 10 MEQ SR TABLET PO SCH (09:26)
[2016-11-03] MEDS: FUROSEMIDE 40 MG TAB PO SCH (09:27)
[2016-11-03] MEDS: CARVedilol 12.5 MG TAB PO SCH ×2 (09:27→20:52)
[2016-11-03] MEDS: SERTRALINE HCL 25 MG TABLET PO SCH ×2 (09:27→20:51)
[2016-11-03] MEDS: NORCO, ANEXSIA 5/325MG TABLET (HYDROcodone/ACETAMINOPHEN) PO PRN ×2 (09:28→16:55)
[2016-11-03] MEDS: amLODIPine 5 MG TAB PO SCH (09:28)
[2016-11-03] MEDS: HEPARIN SOD (PORCINE) 5000 UNITS/ML VIAL SC SCH ×2 (09:29→20:51)
[2016-11-03] MEDS: MIRALAX *UNIT DOSE* 17GM PACKET PO PRN (13:19)
--- NOTE | 2016-11-03 19:12 | REP ---
Clinical: Abdominal pain. Technique: Upright view of the abdomen and pelvis. Findings: The bowel gas pattern is nonspecific and without evidence for obstruction or perforation. Organomegaly. No abnormal calcifications. Skeletal structures demonstrate osteopenia and degenerative changes. Impression: Nonspecific bowel gas pattern. Signed by Ryan Matos MD 11/03/2016 07:02 P
[2016-11-03 19:17] LABS: EOS # 0.2 K/mm3 (0.0-0.50); EOS % 5.2 % (0.0-3.0); LARGE UNSTAINED CELL # 0.1 K/mm3 (0.0-0.4); LARGE UNSTAINED CELL % 2.4 % (0.0-4.0); LYMPH # 0.9 K/mm3 (1.5-4.5); LYMPH % 16.1 % (24.0-44.0); MEAN CORPUSCULAR HEMOGLOBIN 30.2 pg (27.0-33.0); MEAN CORPUSCULAR HGB CONC 31.8 g/dl (32.0-36.5); MEAN CORPUSCULAR VOLUME 95.2 fl (80.0-96.0); MONO # 0.4 K/mm3 (0.0-0.8); MONO % 9.3 % (0.0-5.0); NEUTROPHILS # 3.2 K/mm3 (1.8-7.7); PLATELET COUNT, AUTOMATED 392 k/mm3 (150-450); RED CELL DISTRIBUTION WIDTH 14.6 % (11.5-14.5); WHITE BLOOD COUNT 4.8 K/mm3 (4.0-10.0)
[2016-11-03 19:43] LABS: ALBUMIN 3.3 GM/DL (3.2-5.2); BILIRUBIN,TOTAL 0.2 MG/DL (0.2-1.0); CALCIUM LEVEL 8.9 MG/DL (8.8-10.2); CREATININE FOR GFR 1.71 MG/DL (0.55-1.02); GLOMERULAR FILTRATION RATE 30.4 (>32); POTASSIUM SERUM 4.8 MEQ/L (3.5-5.1); TOTAL PROTEIN 6.6 GM/DL (6.4-8.2)
[2016-11-03] MEDS: DONEPEZIL 5 MG TAB PO SCH (20:51)
[2016-11-03] MEDS: SENNA 8.6 MG TAB (SENOKOT) PO SCH (20:51)
[2016-11-03] MEDS: PRAVASTATIN 20 MG TAB PO SCH (20:51)
[2016-11-03] MEDS: ACETAMINOPHEN TAB 650MG DOSE (2X325MG) PO PRN (20:52)
[2016-11-03 22:00] VITALS: BP 115/76
[2016-11-04] MEDS: AMPICILLIN 250 MG CAP PO SCH ×4 (01:12→16:12)
[2016-11-04] MEDS: LEVOTHYROXINE 75MCG TABLET (0.075MG) PO SCH (05:02)
[2016-11-04 06:00] VITALS: BP 157/63
[2016-11-04 06:30] LABS: ALBUMIN 3.1 GM/DL (3.2-5.2); CALCIUM LEVEL 8.8 MG/DL (8.8-10.2); CREATININE FOR GFR 1.77 MG/DL (0.55-1.02); GLOMERULAR FILTRATION RATE 29.2 (>32); PHOSPHORUS LEVEL 3.9 MG/DL (2.5-4.9); POTASSIUM SERUM 4.1 MEQ/L (3.5-5.1)
[2016-11-04] MEDS: POTASSIUM CHLORIDE 10 MEQ SR TABLET PO SCH (07:59)
[2016-11-04] MEDS: CLOTRIMAZOLE 10 MG TROCHE PO SCH ×4 (08:00→20:28)
[2016-11-04] MEDS: MULTIVITAMINS CHILDREN'S CHEWABLE TABLET PO SCH (08:00)
[2016-11-04] MEDS: SUCRALFATE SUSP 1GM/10ML UD PO SCH ×4 (08:00→20:27)
[2016-11-04] MEDS: ACETAMINOPHEN TAB 650MG DOSE (2X325MG) PO PRN ×2 (08:01→17:14)
[2016-11-04] MEDS: DOCUSATE SOD LIQ 100MG/10ML UDC PO SCH ×2 (08:01→20:27)
[2016-11-04] MEDS: SERTRALINE HCL 25 MG TABLET PO SCH ×2 (08:01→20:28)
[2016-11-04] MEDS: OMEPRAZOLE 20 MG CAP PO SCH (08:01)
[2016-11-04] MEDS: FUROSEMIDE 40 MG TAB PO SCH (08:02)
[2016-11-04] MEDS: CARVedilol 12.5 MG TAB PO SCH ×2 (08:02→20:27)
[2016-11-04] MEDS: amLODIPine 5 MG TAB PO SCH (08:02)
[2016-11-04] MEDS: MEMANTINE 5MG TABLET (NAMENDA) PO SCH (08:02)
[2016-11-04] MEDS: HEPARIN SOD (PORCINE) 5000 UNITS/ML VIAL SC SCH ×2 (08:03→20:28)
[2016-11-04] MEDS: PROCHLORPERAZINE 5 MG TAB (S0183) PO PRN (12:21)
[2016-11-04] MEDS: DONEPEZIL 5 MG TAB PO SCH (20:27)
[2016-11-04] MEDS: PRAVASTATIN 20 MG TAB PO SCH (20:28)
[2016-11-04] MEDS: SENNA 8.6 MG TAB (SENOKOT) PO SCH (20:28)
[2016-11-05] MEDS: AMPICILLIN 250 MG CAP PO SCH ×2 (00:03→05:58)
[2016-11-05] MEDS: ACETAMINOPHEN TAB 650MG DOSE (2X325MG) PO PRN (00:03)
[2016-11-05] MEDS: NORCO, ANEXSIA 5/325MG TABLET (HYDROcodone/ACETAMINOPHEN) PO PRN ×2 (01:22→17:40)
[2016-11-05] MEDS: ONDANSETRON 4 MG TAB (S0181) PO PRN (01:22)
[2016-11-05] MEDS: LEVOTHYROXINE 75MCG TABLET (0.075MG) PO SCH (05:58)
[2016-11-05 06:00] VITALS: BP 154/88
--- NOTE | 2016-11-05 09:12 | IPNPDOC ---
Subjective Date Seen The patient was seen on 11/05/16. Subjective Chief Complaint/HPI The patient is a 81-year-old female admitted with a reason for visit of Dementia. Events since last encounter Pt asleep, nursing without new concerns. Objective Physical Examination General Exam: Positive: No Acute Distress ENT Exam: Positive: Atraumatic, Mucous membr. moist/pink Chest Exam: Positive: Clear to auscultation, Normal air movement Heart Exam: Positive: Rate Normal, Normal S1, Normal S2 Abdomen Exam: Positive: Soft, Negative: Tenderness Extremity Exam: Negative: Edema, Tenderness, Swelling Assessment /Plan Problems (1) UTI (urinary tract infection) Status: Resolved Problem Specific Plan: Monitor Clinically Problem Text: Pt has completed ampicillin x9 days, will d/c today. (2) HEATHER (acute kidney injury) Status: Acute Response to Treatment: Worse Problem Specific Plan: Monitor Clinically, Repeat Labs Problem Text: Baseline scr 1.2, 11/04 1.7, she appears on the dry side, will Hold her Lasix today and tomorrow, scheduled to resume on 11/07. Monitor renal function, this may need to be adjusted further. (3) Dementia Status: Chronic Response to Treatment: Stable Problem Specific Plan: Monitor Clinically Problem Text: Requires placement (4) Multiple myeloma Status: Chronic Response to Treatment: Stable Plan/VTE VTE Prophylaxis Ordered?: Yes VS, I&O, 24H, Fishbone Vital Signs/I&O Vital Signs Date Time Temp Pulse Resp B/P (MAP) Pulse Ox O2 Delivery O2 Flow Rate FiO2 11/05/16 06:00 97.8 88 16 154/88 (110) 100 Room Air I&O- Last 24 Hours up to 6 AM 11/05/16 06:00 Intake Total 480 ml Output Total 200 ml Balance 280 ml Laboratory Data Microbiology Microbiology 11/01/16 Gastrointestinal Tract Panel (PCR) - Final, Complete 11/03/16 Urine Culture - Final, Complete Proteus Mirabilis CAMILA ALMANZAR PA-C Nov 05, 2016 09:12
[2016-11-05] MEDS: MEMANTINE 5MG TABLET (NAMENDA) PO SCH (09:24)
[2016-11-05] MEDS: OMEPRAZOLE 20 MG CAP PO SCH (09:25)
[2016-11-05] MEDS: SERTRALINE HCL 25 MG TABLET PO SCH ×2 (09:25→21:20)
[2016-11-05] MEDS: amLODIPine 5 MG TAB PO SCH (09:27)
[2016-11-05] MEDS: CARVedilol 12.5 MG TAB PO SCH ×2 (09:28→21:20)
[2016-11-05] MEDS: MULTIVITAMINS CHILDREN'S CHEWABLE TABLET PO SCH (09:28)
[2016-11-05] MEDS: POTASSIUM CHLORIDE 10 MEQ SR TABLET PO SCH (09:29)
[2016-11-05] MEDS: SUCRALFATE SUSP 1GM/10ML UD PO SCH ×4 (09:30→21:19)
[2016-11-05] MEDS: CLOTRIMAZOLE 10 MG TROCHE PO SCH ×5 (09:30→21:19)
[2016-11-05] MEDS: DOCUSATE SOD LIQ 100MG/10ML UDC PO SCH ×2 (09:30→21:19)
[2016-11-05] MEDS: HEPARIN SOD (PORCINE) 5000 UNITS/ML VIAL SC SCH ×4 (09:32→21:20)
[2016-11-05 12:18] LABS: CALCIUM LEVEL 9.3 MG/DL (8.8-10.2); CREATININE FOR GFR 1.55 MG/DL (0.55-1.02); POTASSIUM SERUM 3.9 MEQ/L (3.5-5.1)
[2016-11-05] MEDS: PRAVASTATIN 20 MG TAB PO SCH (21:19)
[2016-11-05] MEDS: SENNA 8.6 MG TAB (SENOKOT) PO SCH (21:19)
[2016-11-05] MEDS: DONEPEZIL 5 MG TAB PO SCH (21:20)
[2016-11-06] MEDS: LEVOTHYROXINE 75MCG TABLET (0.075MG) PO SCH (05:54)
[2016-11-06 06:00] VITALS: BP 129/75
[2016-11-06 07:11] LABS: CALCIUM LEVEL 8.3 MG/DL (8.8-10.2); CREATININE FOR GFR 1.55 MG/DL (0.55-1.02); POTASSIUM SERUM 4.7 MEQ/L (3.5-5.1)
[2016-11-06] MEDS: SUCRALFATE SUSP 1GM/10ML UD PO SCH ×4 (09:48→23:15)
[2016-11-06] MEDS: MEMANTINE 5MG TABLET (NAMENDA) PO SCH (09:48)
[2016-11-06] MEDS: OMEPRAZOLE 20 MG CAP PO SCH (09:48)
[2016-11-06] MEDS: SERTRALINE HCL 25 MG TABLET PO SCH ×2 (09:48→23:17)
[2016-11-06] MEDS: CARVedilol 12.5 MG TAB PO SCH ×2 (09:49→23:16)
[2016-11-06] MEDS: POTASSIUM CHLORIDE 10 MEQ SR TABLET PO SCH (09:49)
[2016-11-06] MEDS: CLOTRIMAZOLE 10 MG TROCHE PO SCH ×3 (09:50→17:08)
[2016-11-06] MEDS: HEPARIN SOD (PORCINE) 5000 UNITS/ML VIAL SC SCH ×2 (09:50→23:15)
[2016-11-06] MEDS: MULTIVITAMINS CHILDREN'S CHEWABLE TABLET PO SCH (09:50)
[2016-11-06] MEDS: amLODIPine 5 MG TAB PO SCH (09:50)
[2016-11-06] MEDS: DOCUSATE SOD LIQ 100MG/10ML UDC PO SCH ×2 (13:03→21:00)
[2016-11-06] MEDS: ACETAMINOPHEN TAB 650MG DOSE (2X325MG) PO PRN ×2 (13:06→23:59)
[2016-11-06] MEDS: PRAVASTATIN 20 MG TAB PO SCH (23:16)
[2016-11-06] MEDS: SENNA 8.6 MG TAB (SENOKOT) PO SCH (23:16)
[2016-11-06] MEDS: DONEPEZIL 5 MG TAB PO SCH (23:17)
[2016-11-07 06:00] VITALS: BP 147/70
[2016-11-07] MEDS: LEVOTHYROXINE 75MCG TABLET (0.075MG) PO SCH (06:26)
[2016-11-07 07:26] LABS: CALCIUM LEVEL 9.1 MG/DL (8.8-10.2); CREATININE FOR GFR 1.4 MG/DL (0.55-1.02); GLOMERULAR FILTRATION RATE 38.2 (>32); POTASSIUM SERUM 4.4 MEQ/L (3.5-5.1)
[2016-11-07] MEDS: SUCRALFATE SUSP 1GM/10ML UD PO SCH ×4 (07:30→20:50)
[2016-11-07] MEDS: HEPARIN SOD (PORCINE) 5000 UNITS/ML VIAL SC SCH ×2 (10:15→20:50)
[2016-11-07] MEDS: MULTIVITAMINS CHILDREN'S CHEWABLE TABLET PO SCH (10:15)
[2016-11-07] MEDS: DOCUSATE SOD LIQ 100MG/10ML UDC PO SCH ×2 (10:15→20:50)
[2016-11-07] MEDS: OMEPRAZOLE 20 MG CAP PO SCH (10:16)
[2016-11-07] MEDS: NORCO, ANEXSIA 5/325MG TABLET (HYDROcodone/ACETAMINOPHEN) PO PRN ×2 (10:17→18:59)
[2016-11-07] MEDS: amLODIPine 5 MG TAB PO SCH (10:32)
[2016-11-07] MEDS: MEMANTINE 5MG TABLET (NAMENDA) PO SCH (10:32)
[2016-11-07] MEDS: SERTRALINE HCL 25 MG TABLET PO SCH ×2 (10:33→20:50)
[2016-11-07] MEDS: POTASSIUM CHLORIDE 10 MEQ SR TABLET PO SCH (10:33)
[2016-11-07] MEDS: CARVedilol 12.5 MG TAB PO SCH ×2 (10:33→20:57)
--- NOTE | 2016-11-07 11:17 | IPNPDOC ---
Subjective Date Seen The patient was seen on 11/07/16. Subjective Chief Complaint/HPI The patient is a 81-year-old female admitted with a reason for visit of Dementia. Events since last encounter Pt c/o abd pain and burning with urination. She didn't feel well yesterday. General: Denies: Fatigue Constitutional: Denies: Chills, Fever Pulmonary: Denies: Dyspnea, Cough Cardiovascular: Denies: Chest Pain, Palpitations Gastrointestinal: Denies: Nausea, Vomiting, Diarrhea Psych: Reports: Mood Normal Objective Physical Examination General Exam: Positive: Alert, No Acute Distress ENT Exam: Positive: Atraumatic, Mucous membr. moist/pink Chest Exam: Positive: Clear to auscultation, Normal air movement Heart Exam: Positive: Rate Normal, Normal S1, Normal S2 Abdomen Exam: Positive: Normal bowel sounds, Soft, Negative: Tenderness Extremity Exam: Negative: Edema, Tenderness, Swelling Assessment /Plan Problems (1) Dysuria Status: Acute Problem Text: Will obtain UA, U C & S today. treat as appropriate, note that Ampicillan was d/c's on 11/05 as treatment for UTI after 10 days U/A shows only trace leukocyte esterase, will await culture before resuming Rx. (2) UTI (urinary tract infection) Status: Resolved Problem Specific Plan: Monitor Clinically Problem Text: Pt has completed ampicillin x9 days, will d/c today. (3) HEATHER (acute kidney injury) Status: Acute Response to Treatment: Worse Problem Specific Plan: Monitor Clinically, Repeat Labs Problem Text: 11/07: improving creatinine. furosemide restarted as 40mg MWF instead of daily.Baseline scr 1.2, 11/04 1.7, she appears on the dry side, will Hold her Lasix today and tomorrow, scheduled to resume on 11/07. Monitor renal function, this may need to be adjusted further. (4) Dementia Status: Chronic Response to Treatment: Stable Problem Specific Plan: Monitor Clinically Problem Text: Requires placement (5) Multiple myeloma Status: Chronic Response to Treatment: Stable Plan/VTE VTE Prophylaxis Ordered?: Yes VS, I&O, 24H, Fishbone Vital Signs/I&O Vital Signs Date Time Temp Pulse Resp B/P (MAP) Pulse Ox O2 Delivery O2 Flow Rate FiO2 11/07/16 10:33 80 147/70 11/07/16 10:17 18 Room Air 11/07/16 06:00 97.1 96 I&O- Last 24 Hours up to 6 AM 11/08/16 05:59 Intake Total 210 ml Output Total 0 ml Balance 210 ml Laboratory Data 24H LABS Laboratory Tests 2 11/07/16 06:08: Anion Gap 7L, Glomerular Filtration Rate 38.2, Blood Urea Nitrogen 36H, Creatinine 1.40H, Sodium Level 141, Potassium Level 4.4, Chloride Level 108H, Carbon Dioxide Level 26, Calcium Level 9.1 CBC/BMP Laboratory Tests 11/07/16 06:08 Calcium Level 9.1 Microbiology Microbiology 11/01/16 Gastrointestinal Tract Panel (PCR) - Final, Complete 11/03/16 Urine Culture - Final, Complete Proteus Mirabilis CAMILA ALMANZAR PA-C Nov 07, 2016 11:17 Rajat Harris MD Nov 07, 2016 14:39
[2016-11-07] MEDS: ACETAMINOPHEN TAB 650MG DOSE (2X325MG) PO PRN (13:52)
[2016-11-07] MEDS: PRAVASTATIN 20 MG TAB PO SCH (20:50)
[2016-11-07] MEDS: DONEPEZIL 5 MG TAB PO SCH (21:08)
[2016-11-07] MEDS: SENNA 8.6 MG TAB (SENOKOT) PO SCH (21:08)
[2016-11-08] MEDS: LEVOTHYROXINE 75MCG TABLET (0.075MG) PO SCH (05:32)
[2016-11-08 06:00] VITALS: BP 138/74
[2016-11-08 06:53] LABS: CALCIUM LEVEL 8.6 MG/DL (8.8-10.2); CREATININE FOR GFR 1.28 MG/DL (0.55-1.02); GLOMERULAR FILTRATION RATE 42.4 (>32); POTASSIUM SERUM 4.4 MEQ/L (3.5-5.1)
[2016-11-08] MEDS: DOCUSATE SOD LIQ 100MG/10ML UDC PO SCH ×2 (09:00→20:47)
[2016-11-08] MEDS: OMEPRAZOLE 20 MG CAP PO SCH (09:00)
[2016-11-08] MEDS: POTASSIUM CHLORIDE 10 MEQ SR TABLET PO SCH (09:00)
[2016-11-08] MEDS: SUCRALFATE SUSP 1GM/10ML UD PO SCH ×4 (09:00→20:46)
[2016-11-08] MEDS: MULTIVITAMINS CHILDREN'S CHEWABLE TABLET PO SCH (09:01)
[2016-11-08] MEDS: SERTRALINE HCL 25 MG TABLET PO SCH ×2 (09:01→20:45)
[2016-11-08] MEDS: CARVedilol 12.5 MG TAB PO SCH ×2 (09:01→20:46)
[2016-11-08] MEDS: ACETAMINOPHEN TAB 650MG DOSE (2X325MG) PO PRN ×2 (09:01→20:45)
[2016-11-08] MEDS: FUROSEMIDE 40 MG TAB PO SCH (09:01)
[2016-11-08] MEDS: MEMANTINE 5MG TABLET (NAMENDA) PO SCH (09:01)
[2016-11-08] MEDS: amLODIPine 5 MG TAB PO SCH (09:09)
[2016-11-08] MEDS: HEPARIN SOD (PORCINE) 5000 UNITS/ML VIAL SC SCH (09:09)
[2016-11-08] MEDS: ONDANSETRON 4 MG TAB (S0181) PO PRN ×2 (09:09→23:54)
[2016-11-08] MEDS: SENNA 8.6 MG TAB (SENOKOT) PO SCH (20:45)
[2016-11-08] MEDS: PRAVASTATIN 20 MG TAB PO SCH (20:45)
[2016-11-08] MEDS: DONEPEZIL 5 MG TAB PO SCH (20:45)
[2016-11-08] MEDS: NORCO, ANEXSIA 5/325MG TABLET (HYDROcodone/ACETAMINOPHEN) PO PRN (22:05)
[2016-11-08] MEDS: PROCHLORPERAZINE 5 MG TAB (S0183) PO PRN (22:05)
[2016-11-09 06:00] VITALS: BP 125/75
[2016-11-09] MEDS: LEVOTHYROXINE 75MCG TABLET (0.075MG) PO SCH (06:40)
[2016-11-09] MEDS: POTASSIUM CHLORIDE 10 MEQ SR TABLET PO SCH (09:30)
[2016-11-09] MEDS: DOCUSATE SOD LIQ 100MG/10ML UDC PO SCH ×2 (09:31→19:39)
[2016-11-09] MEDS: SERTRALINE HCL 25 MG TABLET PO SCH ×2 (09:31→19:41)
[2016-11-09] MEDS: SUCRALFATE SUSP 1GM/10ML UD PO SCH ×4 (09:31→19:40)
[2016-11-09] MEDS: CARVedilol 12.5 MG TAB PO SCH ×2 (09:31→19:41)
[2016-11-09] MEDS: MEMANTINE 5MG TABLET (NAMENDA) PO SCH (09:31)
[2016-11-09] MEDS: OMEPRAZOLE 20 MG CAP PO SCH (09:31)
[2016-11-09] MEDS: NORCO, ANEXSIA 5/325MG TABLET (HYDROcodone/ACETAMINOPHEN) PO PRN ×2 (09:32→19:41)
[2016-11-09] MEDS: MULTIVITAMINS CHILDREN'S CHEWABLE TABLET PO SCH (09:33)
[2016-11-09] MEDS: amLODIPine 5 MG TAB PO SCH (09:35)
[2016-11-09] MEDS: HEPARIN SOD (PORCINE) 5000 UNITS/ML VIAL SQ SCH ×2 (14:34→19:40)
[2016-11-09] MEDS: SENNA 8.6 MG TAB (SENOKOT) PO SCH (19:40)
[2016-11-09] MEDS: DONEPEZIL 5 MG TAB PO SCH (19:41)
[2016-11-09] MEDS: PRAVASTATIN 20 MG TAB PO SCH (19:41)
[2016-11-10] MEDS: LEVOTHYROXINE 75MCG TABLET (0.075MG) PO SCH (05:42)
[2016-11-10 06:00] VITALS: BP 132/65
[2016-11-10] MEDS: SERTRALINE HCL 25 MG TABLET PO SCH ×2 (09:59→20:01)
[2016-11-10] MEDS: DOCUSATE SOD LIQ 100MG/10ML UDC PO SCH ×2 (09:59→20:01)
[2016-11-10] MEDS: POTASSIUM CHLORIDE 10 MEQ SR TABLET PO SCH (09:59)
[2016-11-10] MEDS: MEMANTINE 5MG TABLET (NAMENDA) PO SCH (09:59)
[2016-11-10] MEDS: SUCRALFATE SUSP 1GM/10ML UD PO SCH ×4 (09:59→20:01)
[2016-11-10] MEDS: MULTIVITAMINS CHILDREN'S CHEWABLE TABLET PO SCH (09:59)
[2016-11-10] MEDS: NORCO, ANEXSIA 5/325MG TABLET (HYDROcodone/ACETAMINOPHEN) PO PRN ×2 (10:00→20:03)
[2016-11-10] MEDS: OMEPRAZOLE 20 MG CAP PO SCH (10:01)
[2016-11-10] MEDS: amLODIPine 5 MG TAB PO SCH (10:01)
[2016-11-10] MEDS: CARVedilol 12.5 MG TAB PO SCH ×2 (10:07→20:02)
[2016-11-10] MEDS: HEPARIN SOD (PORCINE) 5000 UNITS/ML VIAL SQ SCH ×2 (10:08→20:03)
[2016-11-10] MEDS: ACETAMINOPHEN TAB 650MG DOSE (2X325MG) PO PRN (13:33)
[2016-11-10] MEDS: DONEPEZIL 5 MG TAB PO SCH (20:01)
[2016-11-10] MEDS: SENNA 8.6 MG TAB (SENOKOT) PO SCH (20:01)
[2016-11-10] MEDS: PRAVASTATIN 20 MG TAB PO SCH (20:02)
[2016-11-11] MEDS: LEVOTHYROXINE 75MCG TABLET (0.075MG) PO SCH (06:21)
[2016-11-11 06:54] VITALS: BP 123/96
[2016-11-11] MEDS: SUCRALFATE SUSP 1GM/10ML UD PO SCH ×4 (09:35→20:04)
[2016-11-11] MEDS: amLODIPine 5 MG TAB PO SCH (09:36)
[2016-11-11] MEDS: SERTRALINE HCL 25 MG TABLET PO SCH ×2 (09:36→20:05)
[2016-11-11] MEDS: DOCUSATE SOD LIQ 100MG/10ML UDC PO SCH ×2 (09:36→20:04)
[2016-11-11] MEDS: MEMANTINE 5MG TABLET (NAMENDA) PO SCH (09:36)
[2016-11-11] MEDS: OMEPRAZOLE 20 MG CAP PO SCH (09:36)
[2016-11-11] MEDS: FUROSEMIDE 40 MG TAB PO SCH (09:36)
[2016-11-11] MEDS: POTASSIUM CHLORIDE 10 MEQ SR TABLET PO SCH (09:37)
[2016-11-11] MEDS: CARVedilol 12.5 MG TAB PO SCH ×2 (09:37→20:05)
[2016-11-11] MEDS: MULTIVITAMINS CHILDREN'S CHEWABLE TABLET PO SCH (09:37)
[2016-11-11] MEDS: HEPARIN SOD (PORCINE) 5000 UNITS/ML VIAL SQ SCH ×2 (09:38→20:04)
[2016-11-11] MEDS: NORCO, ANEXSIA 5/325MG TABLET (HYDROcodone/ACETAMINOPHEN) PO PRN ×2 (14:23→22:59)
[2016-11-11] MEDS: ONDANSETRON 4 MG TAB (S0181) PO PRN (20:04)
[2016-11-11] MEDS: PRAVASTATIN 20 MG TAB PO SCH (20:05)
[2016-11-11] MEDS: DONEPEZIL 5 MG TAB PO SCH (20:05)
[2016-11-11] MEDS: SENNA 8.6 MG TAB (SENOKOT) PO SCH (20:06)
[2016-11-12 06:00] VITALS: BP 134/77
[2016-11-12] MEDS: LEVOTHYROXINE 75MCG TABLET (0.075MG) PO SCH (06:22)
[2016-11-12 06:29] LABS: MEAN CORPUSCULAR HEMOGLOBIN 30.6 pg (27.0-33.0); MEAN CORPUSCULAR HGB CONC 32.6 g/dl (32.0-36.5); RED CELL DISTRIBUTION WIDTH 14.6 % (11.5-14.5); WHITE BLOOD COUNT 4.4 10^3/uL (4.0-10.0)
[2016-11-12] MEDS: SUCRALFATE SUSP 1GM/10ML UD PO SCH ×4 (06:53→20:40)
[2016-11-12] MEDS: NORCO, ANEXSIA 5/325MG TABLET (HYDROcodone/ACETAMINOPHEN) PO PRN ×2 (06:54→20:42)
[2016-11-12 10:38] VITALS: BP 124/79
[2016-11-12] MEDS: CARVedilol 12.5 MG TAB PO SCH ×2 (10:46→20:42)
[2016-11-12] MEDS: OMEPRAZOLE 20 MG CAP PO SCH (10:46)
[2016-11-12] MEDS: SERTRALINE HCL 25 MG TABLET PO SCH ×2 (10:47→20:41)
[2016-11-12] MEDS: POTASSIUM CHLORIDE 10 MEQ SR TABLET PO SCH (10:47)
[2016-11-12] MEDS: amLODIPine 5 MG TAB PO SCH (10:47)
[2016-11-12] MEDS: MULTIVITAMINS CHILDREN'S CHEWABLE TABLET PO SCH (10:47)
[2016-11-12] MEDS: DOCUSATE SOD LIQ 100MG/10ML UDC PO SCH ×2 (10:48→20:41)
[2016-11-12] MEDS: HEPARIN SOD (PORCINE) 5000 UNITS/ML VIAL SQ SCH ×2 (10:48→20:42)
[2016-11-12] MEDS: MEMANTINE 5MG TABLET (NAMENDA) PO SCH (10:48)
[2016-11-12] MEDS: PROCHLORPERAZINE 5 MG TAB (S0183) PO PRN (20:41)
[2016-11-12] MEDS: SENNA 8.6 MG TAB (SENOKOT) PO SCH (20:41)
[2016-11-12] MEDS: PRAVASTATIN 20 MG TAB PO SCH (20:41)
[2016-11-12] MEDS: DONEPEZIL 5 MG TAB PO SCH (20:42)
[2016-11-13] MEDS: NORCO, ANEXSIA 5/325MG TABLET (HYDROcodone/ACETAMINOPHEN) PO PRN ×3 (03:07→22:35)
[2016-11-13] MEDS: ONDANSETRON 4 MG TAB (S0181) PO PRN (03:07)
[2016-11-13 06:00] VITALS: BP 118/62
[2016-11-13] MEDS: LEVOTHYROXINE 75MCG TABLET (0.075MG) PO SCH (06:02)
[2016-11-13] MEDS: OMEPRAZOLE 20 MG CAP PO SCH (09:23)
[2016-11-13] MEDS: DOCUSATE SOD LIQ 100MG/10ML UDC PO SCH ×2 (09:23→21:41)
[2016-11-13] MEDS: SUCRALFATE SUSP 1GM/10ML UD PO SCH ×4 (09:23→21:41)
[2016-11-13] MEDS: FUROSEMIDE 40 MG TAB PO SCH (09:24)
[2016-11-13] MEDS: MULTIVITAMINS CHILDREN'S CHEWABLE TABLET PO SCH (09:24)
[2016-11-13] MEDS: POTASSIUM CHLORIDE 10 MEQ SR TABLET PO SCH (09:24)
[2016-11-13] MEDS: SERTRALINE HCL 25 MG TABLET PO SCH ×2 (09:25→21:42)
[2016-11-13] MEDS: CARVedilol 12.5 MG TAB PO SCH ×2 (09:25→21:42)
[2016-11-13] MEDS: MEMANTINE 5MG TABLET (NAMENDA) PO SCH (09:25)
[2016-11-13] MEDS: amLODIPine 5 MG TAB PO SCH (09:25)
[2016-11-13] MEDS: HEPARIN SOD (PORCINE) 5000 UNITS/ML VIAL SQ SCH ×3 (09:26→21:41)
[2016-11-13] MEDS: MIRALAX *UNIT DOSE* 17GM PACKET PO PRN (11:49)
[2016-11-13] MEDS: ACETAMINOPHEN TAB 650MG DOSE (2X325MG) PO PRN (11:51)
[2016-11-13] MEDS: BISACODYL 10 MG SUPP PR SCH (12:21)
[2016-11-13] MEDS ORDERED: FLEET ENEMA PR PRN (12:45)
[2016-11-13] MEDS: PRAVASTATIN 20 MG TAB PO SCH (21:41)
[2016-11-13] MEDS: DONEPEZIL 5 MG TAB PO SCH (21:42)
[2016-11-13] MEDS: SENNA 8.6 MG TAB (SENOKOT) PO SCH (21:42)
[2016-11-13 22:00] VITALS: BP 114/57
[2016-11-14] MEDS: LEVOTHYROXINE 75MCG TABLET (0.075MG) PO SCH (05:58)
[2016-11-14 06:00] VITALS: BP 138/72
[2016-11-14] MEDS: SUCRALFATE SUSP 1GM/10ML UD PO SCH ×4 (10:33→21:21)
[2016-11-14] MEDS: DOCUSATE SOD LIQ 100MG/10ML UDC PO SCH ×2 (10:33→21:22)
[2016-11-14] MEDS: MULTIVITAMINS CHILDREN'S CHEWABLE TABLET PO SCH (10:34)
[2016-11-14] MEDS: OMEPRAZOLE 20 MG CAP PO SCH (10:34)
[2016-11-14] MEDS: MEMANTINE 5MG TABLET (NAMENDA) PO SCH (10:34)
[2016-11-14] MEDS: BISACODYL 10 MG SUPP PR SCH (10:34)
[2016-11-14] MEDS: HEPARIN SOD (PORCINE) 5000 UNITS/ML VIAL SQ SCH ×3 (10:34→21:21)
[2016-11-14] MEDS: CARVedilol 12.5 MG TAB PO SCH ×2 (10:35→21:22)
[2016-11-14] MEDS: amLODIPine 5 MG TAB PO SCH (10:35)
[2016-11-14] MEDS: NORCO, ANEXSIA 5/325MG TABLET (HYDROcodone/ACETAMINOPHEN) PO PRN (10:37)
[2016-11-14] MEDS: SERTRALINE HCL 25 MG TABLET PO SCH ×2 (10:37→21:22)
[2016-11-14] MEDS: POTASSIUM CHLORIDE 10 MEQ SR TABLET PO SCH (10:37)
--- NOTE | 2016-11-14 14:30 | IPNPDOC ---
Subjective Date Seen The patient was seen on 11/14/16. Subjective Chief Complaint/HPI The patient is a 81-year-old female admitted with a reason for visit of Dementia. Events since last encounter Patient offered no complaints this morning. Pulmonary: Denies: Dyspnea Cardiovascular: Denies: Chest Pain, Palpitations Gastrointestinal: Denies: Nausea, Vomiting, Abdominal Pain Objective Physical Examination General Exam: Positive: Alert, No Acute Distress ENT Exam: Positive: Atraumatic, Mucous membr. moist/pink Chest Exam: Positive: Clear to auscultation, Normal air movement Heart Exam: Positive: Rate Normal, Normal S1, Normal S2 Abdomen Exam: Positive: Normal bowel sounds, Soft, Negative: Tenderness Extremity Exam: Negative: Edema, Tenderness, Swelling Assessment /Plan Problems (1) Dementia Status: Chronic Response to Treatment: Stable Problem Specific Plan: Monitor Clinically Problem Text: Awaiting placement; has a sitter at night due to some confusion at night. (2) HEATHER (acute kidney injury) Status: Acute Response to Treatment: Worse Problem Specific Plan: Monitor Clinically, Repeat Labs Problem Text: Kidney function stable when last checked on 11/08. Furosemide restarted as 40mg MWF instead of daily. Baseline Cr 1.2. Recheck BMP tomorrow. (3) UTI (urinary tract infection) Status: Resolved Problem Specific Plan: Monitor Clinically Problem Text: Pt has completed ampicillin x9 days (4) Multiple myeloma Status: Chronic Response to Treatment: Stable (5) Dysuria Status: Acute Problem Text: Urine culture ordered on 11/07 and 11/08 were negative, so no treatment was initiated. Plan/VTE VTE Prophylaxis Ordered?: Yes VS, I&O, 24H, Fishbone Vital Signs/I&O Vital Signs Date Time Temp Pulse Resp B/P (MAP) Pulse Ox O2 Delivery O2 Flow Rate FiO2 11/14/16 11:08 16 Room Air 11/14/16 06:00 97.7 77 138/72 (94) 99 I&O- Last 24 Hours up to 6 AM 11/15/16 06:00 Output Total 600 ml Balance -600 ml Laboratory Data Microbiology Microbiology 11/08/16 Urine Culture - Final, Complete 11/07/16 Urine Culture - Final, Complete CLAUDETTE PICHARDO MD Nov 14, 2016 14:30
[2016-11-14] MEDS: PRAVASTATIN 20 MG TAB PO SCH (21:22)
[2016-11-14] MEDS: SENNA 8.6 MG TAB (SENOKOT) PO SCH (21:22)
[2016-11-14] MEDS: DONEPEZIL 5 MG TAB PO SCH (21:22)
[2016-11-15] MEDS: NORCO, ANEXSIA 5/325MG TABLET (HYDROcodone/ACETAMINOPHEN) PO PRN ×3 (03:02→20:36)
[2016-11-15] MEDS: LEVOTHYROXINE 75MCG TABLET (0.075MG) PO SCH (05:37)
[2016-11-15 06:00] VITALS: BP 125/73
[2016-11-15 06:21] LABS: MEAN CORPUSCULAR HEMOGLOBIN 30.4 pg (27.0-33.0); MEAN CORPUSCULAR HGB CONC 32.4 g/dl (32.0-36.5); MEAN CORPUSCULAR VOLUME 93.8 fl (80.0-96.0); RED CELL DISTRIBUTION WIDTH 14.5 % (11.5-14.5); WHITE BLOOD COUNT 4.3 10^3/uL (4.0-10.0)
[2016-11-15 06:41] LABS: CALCIUM LEVEL 8.7 MG/DL (8.8-10.2); CREATININE FOR GFR 1.41 MG/DL (0.55-1.02); GLOMERULAR FILTRATION RATE 37.9 (>32); POTASSIUM SERUM 4.5 MEQ/L (3.5-5.1)
[2016-11-15] MEDS: MIRALAX *UNIT DOSE* 17GM PACKET PO PRN (08:57)
[2016-11-15] MEDS: DOCUSATE SOD LIQ 100MG/10ML UDC PO SCH ×2 (08:58→20:33)
[2016-11-15] MEDS: SUCRALFATE SUSP 1GM/10ML UD PO SCH ×4 (08:58→20:33)
[2016-11-15] MEDS: HEPARIN SOD (PORCINE) 5000 UNITS/ML VIAL SQ SCH ×2 (08:59→20:32)
[2016-11-15] MEDS: BISACODYL 10 MG SUPP PR SCH (08:59)
[2016-11-15] MEDS: OMEPRAZOLE 20 MG CAP PO SCH (08:59)
[2016-11-15] MEDS: amLODIPine 5 MG TAB PO SCH (08:59)
[2016-11-15] MEDS: MEMANTINE 5MG TABLET (NAMENDA) PO SCH (09:00)
[2016-11-15] MEDS: MULTIVITAMINS CHILDREN'S CHEWABLE TABLET PO SCH (09:00)
[2016-11-15] MEDS: CARVedilol 12.5 MG TAB PO SCH ×2 (09:00→20:35)
[2016-11-15] MEDS: FUROSEMIDE 40 MG TAB PO SCH (09:02)
[2016-11-15] MEDS: POTASSIUM CHLORIDE 10 MEQ SR TABLET PO SCH (09:02)
[2016-11-15] MEDS: SERTRALINE HCL 25 MG TABLET PO SCH ×2 (09:03→20:32)
[2016-11-15] MEDS: PRAVASTATIN 20 MG TAB PO SCH (20:31)
[2016-11-15] MEDS: DONEPEZIL 5 MG TAB PO SCH (20:33)
[2016-11-15] MEDS: SENNA 8.6 MG TAB (SENOKOT) PO SCH (20:33)
[2016-11-16] MEDS: NORCO, ANEXSIA 5/325MG TABLET (HYDROcodone/ACETAMINOPHEN) PO PRN ×3 (03:00→17:55)
[2016-11-16] MEDS: LEVOTHYROXINE 75MCG TABLET (0.075MG) PO SCH (05:54)
[2016-11-16 06:00] VITALS: BP 114/73
[2016-11-16] MEDS: BISACODYL 10 MG SUPP PR SCH (09:24)
[2016-11-16] MEDS: DOCUSATE SOD LIQ 100MG/10ML UDC PO SCH ×2 (09:24→21:12)
[2016-11-16] MEDS: HEPARIN SOD (PORCINE) 5000 UNITS/ML VIAL SQ SCH ×2 (09:24→21:12)
[2016-11-16] MEDS: SUCRALFATE SUSP 1GM/10ML UD PO SCH ×4 (09:24→21:12)
[2016-11-16] MEDS: amLODIPine 5 MG TAB PO SCH (09:25)
[2016-11-16] MEDS: CARVedilol 12.5 MG TAB PO SCH ×2 (09:25→21:13)
[2016-11-16] MEDS: MEMANTINE 5MG TABLET (NAMENDA) PO SCH (09:25)
[2016-11-16] MEDS: OMEPRAZOLE 20 MG CAP PO SCH (09:26)
[2016-11-16] MEDS: MULTIVITAMINS CHILDREN'S CHEWABLE TABLET PO SCH (09:26)
[2016-11-16] MEDS: SERTRALINE HCL 25 MG TABLET PO SCH ×2 (09:27→21:13)
[2016-11-16] MEDS: POTASSIUM CHLORIDE 10 MEQ SR TABLET PO SCH (09:27)
[2016-11-16] MEDS: DONEPEZIL 5 MG TAB PO SCH (21:13)
[2016-11-16] MEDS: SENNA 8.6 MG TAB (SENOKOT) PO SCH (21:13)
[2016-11-16] MEDS: PRAVASTATIN 20 MG TAB PO SCH (21:14)
[2016-11-16] MEDS: ONDANSETRON 4 MG TAB (S0181) PO PRN (22:29)
[2016-11-17] MEDS: NORCO, ANEXSIA 5/325MG TABLET (HYDROcodone/ACETAMINOPHEN) PO PRN ×3 (01:18→17:44)
[2016-11-17 06:00] VITALS: BP 128/58
[2016-11-17] MEDS: LEVOTHYROXINE 75MCG TABLET (0.075MG) PO SCH (06:19)
[2016-11-17] MEDS: SUCRALFATE SUSP 1GM/10ML UD PO SCH ×4 (10:11→20:28)
[2016-11-17] MEDS: MULTIVITAMINS CHILDREN'S CHEWABLE TABLET PO SCH (10:11)
[2016-11-17] MEDS: DOCUSATE SOD LIQ 100MG/10ML UDC PO SCH ×2 (10:11→20:28)
[2016-11-17] MEDS: OMEPRAZOLE 20 MG CAP PO SCH (10:11)
[2016-11-17] MEDS: POTASSIUM CHLORIDE 10 MEQ SR TABLET PO SCH (10:12)
[2016-11-17] MEDS: amLODIPine 5 MG TAB PO SCH (10:12)
[2016-11-17] MEDS: CARVedilol 12.5 MG TAB PO SCH ×2 (10:12→20:28)
[2016-11-17] MEDS: BISACODYL 10 MG SUPP PR SCH (10:13)
[2016-11-17] MEDS: SERTRALINE HCL 25 MG TABLET PO SCH ×2 (10:13→20:29)
[2016-11-17] MEDS: MEMANTINE 5MG TABLET (NAMENDA) PO SCH (10:13)
[2016-11-17] MEDS: HEPARIN SOD (PORCINE) 5000 UNITS/ML VIAL SQ SCH ×2 (10:13→20:29)
[2016-11-17] MEDS: PRAVASTATIN 20 MG TAB PO SCH (20:28)
[2016-11-17] MEDS: SENNA 8.6 MG TAB (SENOKOT) PO SCH (20:28)
[2016-11-17] MEDS: DONEPEZIL 5 MG TAB PO SCH (20:28)
[2016-11-18] MEDS: ONDANSETRON 4 MG TAB (S0181) PO PRN (04:03)
[2016-11-18] MEDS: NORCO, ANEXSIA 5/325MG TABLET (HYDROcodone/ACETAMINOPHEN) PO PRN ×3 (04:04→19:46)
[2016-11-18 06:00] VITALS: BP 122/57
[2016-11-18] MEDS: LEVOTHYROXINE 75MCG TABLET (0.075MG) PO SCH (06:03)
[2016-11-18 07:30] LABS: MEAN CORPUSCULAR HEMOGLOBIN 30.5 pg (27.0-33.0); MEAN CORPUSCULAR VOLUME 95.1 fl (80.0-96.0); RED CELL DISTRIBUTION WIDTH 14.5 % (11.5-14.5); WHITE BLOOD COUNT 3.5 10^3/uL (4.0-10.0)
[2016-11-18] MEDS: DOCUSATE SOD LIQ 100MG/10ML UDC PO SCH ×2 (09:00→21:01)
[2016-11-18] MEDS: FUROSEMIDE 40 MG TAB PO SCH (10:23)
[2016-11-18] MEDS: BISACODYL 10 MG SUPP PR SCH (10:23)
[2016-11-18] MEDS: OMEPRAZOLE 20 MG CAP PO SCH (10:24)
[2016-11-18] MEDS: amLODIPine 5 MG TAB PO SCH (10:24)
[2016-11-18] MEDS: MULTIVITAMINS CHILDREN'S CHEWABLE TABLET PO SCH (10:25)
[2016-11-18] MEDS: SERTRALINE HCL 25 MG TABLET PO SCH ×2 (10:25→21:02)
[2016-11-18] MEDS: SUCRALFATE SUSP 1GM/10ML UD PO SCH ×4 (10:25→21:01)
[2016-11-18] MEDS: HEPARIN SOD (PORCINE) 5000 UNITS/ML VIAL SQ SCH ×2 (10:25→21:00)
[2016-11-18] MEDS: CARVedilol 12.5 MG TAB PO SCH ×2 (10:25→21:02)
[2016-11-18] MEDS: POTASSIUM CHLORIDE 10 MEQ SR TABLET PO SCH (10:25)
[2016-11-18] MEDS: MEMANTINE 5MG TABLET (NAMENDA) PO SCH (10:25)
[2016-11-18] MEDS: SENNA 8.6 MG TAB (SENOKOT) PO SCH (21:02)
[2016-11-18] MEDS: DONEPEZIL 5 MG TAB PO SCH (21:02)
[2016-11-18] MEDS: PRAVASTATIN 20 MG TAB PO SCH (21:02)
[2016-11-19] MEDS: NORCO, ANEXSIA 5/325MG TABLET (HYDROcodone/ACETAMINOPHEN) PO PRN ×2 (02:21→18:48)
[2016-11-19] MEDS: LEVOTHYROXINE 75MCG TABLET (0.075MG) PO SCH (05:37)
[2016-11-19 06:00] VITALS: BP 123/58
[2016-11-19] MEDS: MULTIVITAMINS CHILDREN'S CHEWABLE TABLET PO SCH (08:42)
[2016-11-19] MEDS: OMEPRAZOLE 20 MG CAP PO SCH (08:42)
[2016-11-19] MEDS: CARVedilol 12.5 MG TAB PO SCH ×2 (08:42→20:47)
[2016-11-19] MEDS: DOCUSATE SOD LIQ 100MG/10ML UDC PO SCH ×2 (08:42→20:46)
[2016-11-19] MEDS: SERTRALINE HCL 25 MG TABLET PO SCH ×2 (08:42→20:46)
[2016-11-19] MEDS: SUCRALFATE SUSP 1GM/10ML UD PO SCH ×4 (08:42→20:46)
[2016-11-19] MEDS: HEPARIN SOD (PORCINE) 5000 UNITS/ML VIAL SQ SCH ×3 (08:43→20:48)
[2016-11-19] MEDS: BISACODYL 10 MG SUPP PR SCH (08:43)
[2016-11-19] MEDS: MEMANTINE 5MG TABLET (NAMENDA) PO SCH (08:43)
[2016-11-19] MEDS: amLODIPine 5 MG TAB PO SCH (08:43)
[2016-11-19] MEDS: POTASSIUM CHLORIDE 10 MEQ SR TABLET PO SCH (08:43)
[2016-11-19] MEDS: ONDANSETRON 4 MG TAB (S0181) PO PRN (19:34)
[2016-11-19] MEDS: DONEPEZIL 5 MG TAB PO SCH (20:46)
[2016-11-19] MEDS: PRAVASTATIN 20 MG TAB PO SCH (20:47)
[2016-11-19] MEDS: SENNA 8.6 MG TAB (SENOKOT) PO SCH (20:47)
[2016-11-20] MEDS: ACETAMINOPHEN TAB 650MG DOSE (2X325MG) PO PRN ×2 (00:26→12:20)
[2016-11-20] MEDS: LEVOTHYROXINE 75MCG TABLET (0.075MG) PO SCH (05:33)
[2016-11-20 06:00] VITALS: BP 104/57
[2016-11-20] MEDS: BISACODYL 10 MG SUPP PR SCH (09:00)
[2016-11-20] MEDS: amLODIPine 5 MG TAB PO SCH (09:00)
[2016-11-20] MEDS: CARVedilol 12.5 MG TAB PO SCH ×2 (09:00→21:01)
[2016-11-20] MEDS: HEPARIN SOD (PORCINE) 5000 UNITS/ML VIAL SQ SCH ×3 (09:00→20:56)
[2016-11-20] MEDS: SUCRALFATE SUSP 1GM/10ML UD PO SCH ×4 (09:23→20:56)
[2016-11-20] MEDS: OMEPRAZOLE 20 MG CAP PO SCH (09:24)
[2016-11-20] MEDS: MEMANTINE 5MG TABLET (NAMENDA) PO SCH (09:24)
[2016-11-20] MEDS: DOCUSATE SOD LIQ 100MG/10ML UDC PO SCH ×2 (09:24→21:01)
[2016-11-20] MEDS: POTASSIUM CHLORIDE 10 MEQ SR TABLET PO SCH (09:25)
[2016-11-20] MEDS: SERTRALINE HCL 25 MG TABLET PO SCH ×2 (09:25→21:01)
[2016-11-20] MEDS: FUROSEMIDE 40 MG TAB PO SCH (09:25)
[2016-11-20] MEDS: MULTIVITAMINS CHILDREN'S CHEWABLE TABLET PO SCH (09:25)
[2016-11-20 12:11] LABS: CALCIUM LEVEL 8.5 MG/DL (8.8-10.2); CREATININE FOR GFR 1.38 MG/DL (0.55-1.02); GLOMERULAR FILTRATION RATE 38.9 (>32); POTASSIUM SERUM 4.8 MEQ/L (3.5-5.1)
[2016-11-20] MEDS: PRAVASTATIN 20 MG TAB PO SCH (20:56)
[2016-11-20] MEDS: SENNA 8.6 MG TAB (SENOKOT) PO SCH (20:57)
[2016-11-20] MEDS: DONEPEZIL 5 MG TAB PO SCH (20:58)
[2016-11-20] MEDS: NORCO, ANEXSIA 5/325MG TABLET (HYDROcodone/ACETAMINOPHEN) PO PRN (20:58)
[2016-11-21 06:00] VITALS: BP 135/88
[2016-11-21] MEDS: LEVOTHYROXINE 75MCG TABLET (0.075MG) PO SCH (06:12)
[2016-11-21 06:34] LABS: MEAN CORPUSCULAR HGB CONC 32.5 g/dl (32.0-36.5); MEAN CORPUSCULAR VOLUME 92.2 fl (80.0-96.0); RED CELL DISTRIBUTION WIDTH 14.3 % (11.5-14.5); WHITE BLOOD COUNT 3.9 10^3/uL (4.0-10.0)
[2016-11-21] MEDS: SUCRALFATE SUSP 1GM/10ML UD PO SCH ×4 (07:30→20:45)
[2016-11-21] MEDS: BISACODYL 10 MG SUPP PR SCH (09:00)
[2016-11-21] MEDS: OMEPRAZOLE 20 MG CAP PO SCH (11:09)
[2016-11-21] MEDS: HEPARIN SOD (PORCINE) 5000 UNITS/ML VIAL SQ SCH ×2 (11:09→20:45)
[2016-11-21] MEDS: MULTIVITAMINS CHILDREN'S CHEWABLE TABLET PO SCH (11:09)
[2016-11-21] MEDS: MEMANTINE 5MG TABLET (NAMENDA) PO SCH (11:10)
[2016-11-21] MEDS: POTASSIUM CHLORIDE 10 MEQ SR TABLET PO SCH (11:10)
[2016-11-21] MEDS: SERTRALINE HCL 25 MG TABLET PO SCH ×2 (11:10→20:45)
[2016-11-21] MEDS: ACETAMINOPHEN TAB 650MG DOSE (2X325MG) PO PRN (11:11)
[2016-11-21] MEDS: CARVedilol 12.5 MG TAB PO SCH ×2 (11:14→18:53)
[2016-11-21] MEDS: DOCUSATE SOD LIQ 100MG/10ML UDC PO SCH ×2 (11:14→21:00)
[2016-11-21] MEDS: amLODIPine 5 MG TAB PO SCH (11:15)
[2016-11-21] MEDS: NORCO, ANEXSIA 5/325MG TABLET (HYDROcodone/ACETAMINOPHEN) PO PRN ×2 (14:46→20:48)
[2016-11-21] MEDS: PRAVASTATIN 20 MG TAB PO SCH (20:45)
[2016-11-21] MEDS: DONEPEZIL 5 MG TAB PO SCH (20:45)
[2016-11-21] MEDS: SENNA 8.6 MG TAB (SENOKOT) PO SCH (21:00)
[2016-11-22 05:15] VITALS: BP 131/70
[2016-11-22] MEDS: LEVOTHYROXINE 75MCG TABLET (0.075MG) PO SCH (06:03)
[2016-11-22] MEDS: SUCRALFATE SUSP 1GM/10ML UD PO SCH ×4 (08:07→20:07)
[2016-11-22] MEDS: SERTRALINE HCL 25 MG TABLET PO SCH ×2 (08:07→20:08)
[2016-11-22] MEDS: MEMANTINE 5MG TABLET (NAMENDA) PO SCH (08:07)
[2016-11-22] MEDS: POTASSIUM CHLORIDE 10 MEQ SR TABLET PO SCH (08:08)
[2016-11-22] MEDS: OMEPRAZOLE 20 MG CAP PO SCH (08:08)
[2016-11-22] MEDS: MULTIVITAMINS CHILDREN'S CHEWABLE TABLET PO SCH (08:08)
[2016-11-22] MEDS: amLODIPine 5 MG TAB PO SCH (08:09)
[2016-11-22] MEDS: FUROSEMIDE 40 MG TAB PO SCH (08:09)
[2016-11-22] MEDS: CARVedilol 12.5 MG TAB PO SCH ×2 (08:09→20:10)
[2016-11-22] MEDS: DOCUSATE SOD LIQ 100MG/10ML UDC PO SCH ×2 (08:10→20:07)
[2016-11-22] MEDS: HEPARIN SOD (PORCINE) 5000 UNITS/ML VIAL SQ SCH ×2 (08:10→20:07)
[2016-11-22] MEDS: BISACODYL 10 MG SUPP PR SCH (08:10)
[2016-11-22] MEDS: ACETAMINOPHEN TAB 650MG DOSE (2X325MG) PO PRN (15:03)
--- NOTE | 2016-11-22 15:34 | IPN ---
DATE: 11/22/2016 SUBJECTIVE: Philly [facility]. She was holding hands with her , Yuri, watching "[employer] Make [employer] Deal." She had had some chest pain last 24 hours that responded to distraction. PHYSICAL EXAMINATION: VITAL SIGNS: Stable. LUNGS: Clear. Chest wall is tender to palpate left sternal border, reproduces her pain. HEART: Regular rhythm. ABDOMEN: Soft, nontender. LABORATORY DATA: From 11/21, are unremarkable. IMPRESSION: Chest wall pain. No sign of coronary ischemia. Reproducible by palpating her chest wall. If it happens again, a heating pad would be appropriate.
[2016-11-22] MEDS: PRAVASTATIN 20 MG TAB PO SCH (20:07)
[2016-11-22] MEDS: SENNA 8.6 MG TAB (SENOKOT) PO SCH (20:07)
[2016-11-22] MEDS: DONEPEZIL 5 MG TAB PO SCH (20:08)
[2016-11-22] MEDS: NORCO, ANEXSIA 5/325MG TABLET (HYDROcodone/ACETAMINOPHEN) PO PRN (20:08)
[2016-11-23] MEDS: NORCO, ANEXSIA 5/325MG TABLET (HYDROcodone/ACETAMINOPHEN) PO PRN ×3 (02:12→20:31)
[2016-11-23 05:10] VITALS: BP 135/74
[2016-11-23] MEDS: LEVOTHYROXINE 75MCG TABLET (0.075MG) PO SCH (06:21)
[2016-11-23] MEDS: SUCRALFATE SUSP 1GM/10ML UD PO SCH ×4 (08:39→20:31)
[2016-11-23] MEDS: DOCUSATE SOD LIQ 100MG/10ML UDC PO SCH ×2 (08:40→20:31)
[2016-11-23] MEDS: MULTIVITAMINS CHILDREN'S CHEWABLE TABLET PO SCH (08:41)
[2016-11-23] MEDS: SERTRALINE HCL 25 MG TABLET PO SCH ×2 (08:41→20:30)
[2016-11-23] MEDS: MEMANTINE 5MG TABLET (NAMENDA) PO SCH (08:41)
[2016-11-23] MEDS: OMEPRAZOLE 20 MG CAP PO SCH (08:41)
[2016-11-23] MEDS: CARVedilol 12.5 MG TAB PO SCH ×2 (08:42→20:46)
[2016-11-23] MEDS: POTASSIUM CHLORIDE 10 MEQ SR TABLET PO SCH (08:42)
[2016-11-23] MEDS: HEPARIN SOD (PORCINE) 5000 UNITS/ML VIAL SQ SCH ×2 (08:43→20:31)
[2016-11-23] MEDS: amLODIPine 5 MG TAB PO SCH (08:43)
[2016-11-23] MEDS: BISACODYL 10 MG SUPP PR SCH (12:14)
[2016-11-23] MEDS: SENNA 8.6 MG TAB (SENOKOT) PO SCH (20:30)
[2016-11-23] MEDS: PRAVASTATIN 20 MG TAB PO SCH (20:30)
[2016-11-23] MEDS: DONEPEZIL 5 MG TAB PO SCH (20:31)
[2016-11-24] MEDS: LEVOTHYROXINE 75MCG TABLET (0.075MG) PO SCH (05:46)
[2016-11-24 06:00] VITALS: BP 139/71
[2016-11-24] MEDS: MULTIVITAMINS CHILDREN'S CHEWABLE TABLET PO SCH (07:39)
[2016-11-24] MEDS: SUCRALFATE SUSP 1GM/10ML UD PO SCH ×4 (07:40→20:09)
[2016-11-24] MEDS: DOCUSATE SOD LIQ 100MG/10ML UDC PO SCH ×2 (07:41→20:09)
[2016-11-24] MEDS: MEMANTINE 5MG TABLET (NAMENDA) PO SCH (07:43)
[2016-11-24] MEDS: SERTRALINE HCL 25 MG TABLET PO SCH ×2 (07:43→20:10)
[2016-11-24] MEDS: OMEPRAZOLE 20 MG CAP PO SCH (07:43)
[2016-11-24] MEDS: amLODIPine 5 MG TAB PO SCH (07:44)
[2016-11-24] MEDS: CARVedilol 12.5 MG TAB PO SCH ×2 (07:45→22:21)
[2016-11-24] MEDS: HEPARIN SOD (PORCINE) 5000 UNITS/ML VIAL SQ SCH ×2 (07:46→20:10)
[2016-11-24] MEDS: POTASSIUM CHLORIDE 10 MEQ SR TABLET PO SCH (07:46)
[2016-11-24] MEDS: BISACODYL 10 MG SUPP PR SCH (09:00)
[2016-11-24] MEDS: ACETAMINOPHEN TAB 650MG DOSE (2X325MG) PO PRN (11:54)
[2016-11-24] MEDS: NORCO, ANEXSIA 5/325MG TABLET (HYDROcodone/ACETAMINOPHEN) PO PRN ×2 (16:35→20:09)
[2016-11-24] MEDS: MIRALAX *UNIT DOSE* 17GM PACKET PO PRN (16:36)
[2016-11-24] MEDS: SENNA 8.6 MG TAB (SENOKOT) PO SCH (20:09)
[2016-11-24] MEDS: PRAVASTATIN 20 MG TAB PO SCH (20:09)
[2016-11-24] MEDS: DONEPEZIL 5 MG TAB PO SCH (20:10)
[2016-11-25] MEDS: LEVOTHYROXINE 75MCG TABLET (0.075MG) PO SCH (05:41)
[2016-11-25 06:00] VITALS: BP 163/82
[2016-11-25] MEDS: POTASSIUM CHLORIDE 10 MEQ SR TABLET PO SCH (08:21)
[2016-11-25] MEDS: SUCRALFATE SUSP 1GM/10ML UD PO SCH ×4 (08:21→20:59)
[2016-11-25] MEDS: DOCUSATE SOD LIQ 100MG/10ML UDC PO SCH ×2 (08:21→20:57)
[2016-11-25] MEDS: MEMANTINE 5MG TABLET (NAMENDA) PO SCH (08:22)
[2016-11-25] MEDS: FUROSEMIDE 40 MG TAB PO SCH (08:22)
[2016-11-25] MEDS: SERTRALINE HCL 25 MG TABLET PO SCH ×2 (08:22→20:59)
[2016-11-25] MEDS: OMEPRAZOLE 20 MG CAP PO SCH (08:23)
[2016-11-25] MEDS: MULTIVITAMINS CHILDREN'S CHEWABLE TABLET PO SCH (08:23)
[2016-11-25] MEDS: CARVedilol 12.5 MG TAB PO SCH ×2 (08:23→20:58)
[2016-11-25] MEDS: HEPARIN SOD (PORCINE) 5000 UNITS/ML VIAL SQ SCH ×2 (08:24→20:58)
[2016-11-25] MEDS: BISACODYL 10 MG SUPP PR SCH ×3 (08:24→08:50)
[2016-11-25] MEDS: amLODIPine 5 MG TAB PO SCH (12:39)
[2016-11-25] MEDS: BISACODYL 5 MG TAB PO SCH (12:45)
[2016-11-25] MEDS: ACETAMINOPHEN TAB 650MG DOSE (2X325MG) PO PRN (20:57)
[2016-11-25] MEDS: PRAVASTATIN 20 MG TAB PO SCH (20:58)
[2016-11-25] MEDS: SENNA 8.6 MG TAB (SENOKOT) PO SCH (20:58)
[2016-11-25] MEDS: DONEPEZIL 5 MG TAB PO SCH (20:58)
[2016-11-26] MEDS: LEVOTHYROXINE 75MCG TABLET (0.075MG) PO SCH (05:33)
[2016-11-26 06:00] VITALS: BP 133/68
[2016-11-26] MEDS: DOCUSATE SOD LIQ 100MG/10ML UDC PO SCH ×2 (09:36→21:50)
[2016-11-26] MEDS: SUCRALFATE SUSP 1GM/10ML UD PO SCH ×4 (09:36→21:50)
[2016-11-26] MEDS: CARVedilol 12.5 MG TAB PO SCH ×2 (09:37→21:50)
[2016-11-26] MEDS: POTASSIUM CHLORIDE 10 MEQ SR TABLET PO SCH (09:38)
[2016-11-26] MEDS: MEMANTINE 5MG TABLET (NAMENDA) PO SCH (09:38)
[2016-11-26] MEDS: MULTIVITAMINS CHILDREN'S CHEWABLE TABLET PO SCH (09:38)
[2016-11-26] MEDS: BISACODYL 5 MG TAB PO SCH (09:38)
[2016-11-26] MEDS: amLODIPine 5 MG TAB PO SCH (09:38)
[2016-11-26] MEDS: OMEPRAZOLE 20 MG CAP PO SCH (09:38)
[2016-11-26] MEDS: SERTRALINE HCL 25 MG TABLET PO SCH ×2 (09:39→21:50)
[2016-11-26] MEDS: HEPARIN SOD (PORCINE) 5000 UNITS/ML VIAL SQ SCH ×2 (09:39→21:51)
[2016-11-26] MEDS ORDERED: BISAC5TA PO (11:28)
[2016-11-26] MEDS ORDERED: DOCU10ELUD PO (11:28)
[2016-11-26] MEDS ORDERED: SENN18TA PO (11:28)
--- NOTE | 2016-11-26 19:38 | DSES ---
DATE OF ADMISSION: 10/25/2016 DATE OF DISCHARGE:11/27/2016 The patient's hospitalization has remained uneventful since transitioned to group home facility status. She was found to have some irregular heart rate at one point, however, she does have a history of paroxysmal atrial fibrillation which anticoagulation has been recommended against given her mental status and fall risk. The patient has been medically stable throughout the rest of her hospitalization. Most recent labs on 11/21/2016, show a hemoglobin and hematocrit of 11 and 35. Chemistries on 11/20/2016, show a creatinine of 1.38 with a BUN of 42. The patient is discharged in stable and satisfactory condition. [facility] HOSPITALJamie
[2016-11-26] MEDS: DONEPEZIL 5 MG TAB PO SCH (21:50)
[2016-11-26] MEDS: PRAVASTATIN 20 MG TAB PO SCH (21:50)
[2016-11-26] MEDS: SENNA 8.6 MG TAB (SENOKOT) PO SCH (21:50)
[2016-11-27] MEDS: ACETAMINOPHEN TAB 650MG DOSE (2X325MG) PO PRN (00:32)
[2016-11-27] MEDS: LEVOTHYROXINE 75MCG TABLET (0.075MG) PO SCH (05:31)
[2016-11-27 06:00] VITALS: BP 124/82
[2016-11-27] MEDS: SUCRALFATE SUSP 1GM/10ML UD PO SCH (08:14)
[2016-11-27] MEDS: DOCUSATE SOD LIQ 100MG/10ML UDC PO SCH (08:14)
[2016-11-27] MEDS: HEPARIN SOD (PORCINE) 5000 UNITS/ML VIAL SQ SCH (08:15)
[2016-11-27] MEDS: POTASSIUM CHLORIDE 10 MEQ SR TABLET PO SCH (08:16)
[2016-11-27] MEDS: BISACODYL 5 MG TAB PO SCH (08:16)
[2016-11-27] MEDS: OMEPRAZOLE 20 MG CAP PO SCH (08:16)
[2016-11-27 08:17] VITALS: BP 139/94
[2016-11-27] MEDS: CARVedilol 12.5 MG TAB PO SCH (08:17)
[2016-11-27] MEDS: MEMANTINE 5MG TABLET (NAMENDA) PO SCH (08:17)
[2016-11-27] MEDS: FUROSEMIDE 40 MG TAB PO SCH (08:17)
[2016-11-27] MEDS: MULTIVITAMINS CHILDREN'S CHEWABLE TABLET PO SCH (08:18)
[2016-11-27] MEDS: SERTRALINE HCL 25 MG TABLET PO SCH (08:18)
[2016-11-27] MEDS: amLODIPine 5 MG TAB PO SCH (08:18)
== END 2016-11-27 09:00 | DRG 689 ==
LOC: M ED 15:33 → M ED INP 19:56 → M MSPAV 23:02
PROVIDERS: ADMIT Internal Medicine; ATTEND Family Medicine
DX: N39.0 Urinary tract infection, site not specified (principal); G93.41 Metabolic encephalopathy; C90.00 Multiple myeloma not having achieved remission; N17.9 Acute kidney failure, unspecified; F03.90 Unspecified dementia, unspecified severity, without behavioral disturbance, psychotic disturbance, mood disturbance, and anxiety; R29.6 Repeated falls; E03.9 Hypothyroidism, unspecified; I12.9 Hypertensive chronic kidney disease with stage 1 through stage 4 chronic kidney disease, or unspecified chronic kidney disease; I48.0 Paroxysmal atrial fibrillation; N18.3 Chronic kidney disease, stage 3 (moderate); Z79.899 Other long term (current) drug therapy; Z88.6 Allergy status to analgesic agent; K21.9 Gastro-esophageal reflux disease without esophagitis; E78.5 Hyperlipidemia, unspecified; F41.9 Anxiety disorder, unspecified; F32.9 Major depressive disorder, single episode, unspecified; E87.6 Hypokalemia